=== PATIENT | female | born 1935 | race Caucasian/White ===

== ENCOUNTER 2021-11-15 18:55 | Inpatient (IN) ==
[2021-11-15] MEDS ORDERED: MoRPHine SULFATE 2 MG/ML CARP IV PRN (19:04)
--- NOTE | 2021-11-15 19:09 | Emergency Department Note ---
History of Present Illness General Chief complaint: Fall Stated complaint: fall, hip pain Time Seen by Provider: 11/15/21 19:01 History of Present Illness 86-year-old female presents to the ED with a chief complaint of left hip pain. The patient states that she was getting out of bed and slipped prior to arrival causing her fall. The patient complains of left hip pain. She was transported here by EMS. No additional complaints. The pain is worse with movement. She has history of bilateral hip replacements many years ago in the state of [place]. Denies hitting her head or loss of consciousness. No additional complaints of injury. Allergies Allergy/AdvReac Type Severity Reaction Status Date / Time No Known Allergies AdvReac Unknown Unverified 11/05/04 22:51 Past Med/Surg History Medical History HLD (hyperlipidemia) HTN (hypertension) No pertinent family history Surgical History No pertinent past surgical history Social History Smoking Status: Never smoker Feels Safe at Home: Yes Review of Systems A total of 10 systems reviewed and were otherwise negative Physical Exam CONSTITUTIONAL/VITAL SIGNS: Reviewed / noted above. GENERAL: Non-toxic in appearance. INTEGUMENTARY: Warm, dry, and [place]. HEAD: Normocephalic. EYES: without scleral icterus or trauma. ENT/OROPHARYNX: clear and moist. LYMPHADENOPATHY/NECK: Is supple without lymphadenopathy or meningismus. RESPIRATORY: Clear to auscultation bilaterally. No increased work of breathing. CARDIOVASCULAR: Regular rate and rhythm. EXTREMITIES: Warm and well perfused. The patient has the left hip flexed. It is painful with any movement. Distal pulses are intact. NEUROLOGICAL: Intact without focal deficits. PSYCHIATRIC: normal affect. MUSCULOSKELETAL: Normally developed with good muscle tone. TRIAGE NURSING DOCUMENTATION REVIEWED. Course Administered Medications Lactated Ringer's (Lr) 1,000 mls @ 75 mls/hr IV .[id number] SUSAN Stop: 12/15/21 19:14 Last Admin: 11/15/21 19:45 Dose: 75 mls/hr Documented By: [id number] Morphine Sulfate (Morphine Sulfate 4 Mg/Ml 1 Ml Carp\Vial) 4 mg IV Q1H PRN PRN Reason: Severe Pain (Rating 7,8,9,10) Stop: 11/29/21 19:03 Last Admin: 11/15/21 19:45 Dose: 4 mg Documented By: [id number] Medical Decision Making Differential Diagnosis Fracture, subluxation, dislocation, contusion, ligamentous injury, neurovascul ar, compartment syndrome, rhabdomyolysis, as well as other pathologies. Medical Records Attestation: I reviewed the patient's medical records. Home Medications Current Medication List: was personally reviewed by me Laboratory Data Attestation: I reviewed the patient's lab results. Result diagrams: 11/15/21 19:14 11/15/21 19:14 Lab Results 11/15/21 11/15/21 11/15/21 Range/Units 19:14 19:14 19:14 WBC 10.83 H (4.8-10.8) K/ul RBC 3.94 (3.93-5.22) M/uL Hgb 12.6 (12.0-16.0) g/dl Hct 35.5 (34.1-44.9) % MCV 90.1 (80.0-100.0) fL MCH 32.0 (25.0-34.0) pg MCHC 35.5 (32.0-36.0) g/dL RDW Std Deviation 38.2 (36.4-46.3) fL RDW Coeff of Robert 11.5 (11.5-14.5) % Plt Count 262 (130-400) K/uL MPV 10.3 (9.4-12.3) fL Immature Gran % (Auto) 0.4 % Neut % (Auto) 73.4 % Lymph % (Auto) 18.9 % [place] % (Auto) 5.4 % Eos % (Auto) 1.3 % Baso % (Auto) 0.6 % Neut # (Auto) 7.96 H (1.4-6.5) K/uL Lymph # (Auto) 2.05 (1.2-3.4) K/uL Kenton # (Auto) 0.58 (0.24-0.82) K/uL Eos # (Auto) 0.14 (0-0.50) K/uL Baso # (Auto) 0.06 (0-0.2) K/uL Immature Gran # (Auto) 0.04 H (0.00-0.02) K/uL PT 10.8 (9.0-12.0) Seconds INR 1.0 (0.9-1.1) APTT 22.8 (21.0-31.0) Seconds PTT Ratio 0.8 Sodium 136 (136-145) mmol/L Potassium 4.1 (3.5-5.1) mmol/L Chloride 103 (98-107) mmol/L Carbon Dioxide 24 (21-32) mmol/L Anion Gap 9 (3-11) BUN 14 (6-23) mg/dl Creatinine 0.80 (0.6-1.2) mg/dl Est Cr Clr Drug Dosing Not Reportable Est GFR ( Amer) 76.8 ml/min Est GFR (Non-Af Amer) 66.3 ml/min BUN/Creatinine Ratio 17.5 (10-20) Glucose 110 H (70-99(Fasting)) mg/dl Calcium 9.1 (8.5-10.1) mg/dl Total Bilirubin 0.7 (0.2-1.0) mg/dl AST 20 (13-39) U/L ALT 11 (7-52) U/L Alkaline Phosphatase 48 (34-104) U/L Total Protein 6.8 (6.0-8.3) gm/dl Albumin 3.9 (3.4-5.0) gm/dl Globulin 2.9 (2.5-4.0) gm/dl Albumin/Globulin Ratio 1.3 (0.9-2) Imaging Data Radiologist's Impression: Hip/Pelvis X-Ray 11/15/21 19:05 XR hip LT 2V w pelvis CLINICAL HISTORY: Hip fracture. COMPARISON: None FINDINGS: Sacroiliac joints and symphysis pubis are intact. Alignment of the right hip arthroplasty is anatomic. Visualized portions are intact. Note is made of an acute periprosthetic fracture adjacent to the proximal femoral component of the left hip arthroplasty with displacement of the lesser trochanter. IMPRESSION: Acute periprosthetic fracture of the proximal left femur with displacement of the lesser trochanter. ACT 112: Negative or not required by law. Electronically signed by: Michi Shepherd M.D. 11/15/2021 7:49 PM Chest X-Ray 11/15/21 19:06 XR chest 1V portable CLINICAL HISTORY: Hip fracture. COMPARISON STUDY: Chest radiograph April 15, 2021. FINDINGS: Lung volumes are normal. Lungs are clear. There is no pneumothorax or pleural effusion. Cardiac size is normal. Mediastinal contours are normal. There is no evidence for pulmonary edema. Bilateral breast implants are incidentally noted. IMPRESSION: No acute cardiopulmonary findings. ACT 112: Negative or not required by law. Electronically signed by: Michi Shepherd M.D. 11/15/2021 7:50 PM ECG Data Attestation: I personally reviewed and interpreted this ECG as follows: Additional Comments: Twelve-lead EKG: Per my interpretation shows normal sinus rhythm at a rate of 60. No ST elevation. No PVCs. Normal QTC. MDM Narrative 86-year-old female presents after a slip and fall with left hip pain. This occurred just prior to arrival. Exam reveals pain in the left hip with any movement. X-ray shows a periprosthetic femur fracture. EKG shows normal sinus rhythm. CBC and chemistry panel was normal. I spoke with Dr. Michel from orthopedics. He recommends a CT scan with 3D reconstruction and medicine [facility]. I spoke with the hospitalist who will see the patient. Impression & Plan Closed left femoral fracture, Fall Discharge Plan Visit Data Chief Complaint: Fall Stated Complaint: fall, hip pain ED Provider: Hardik Kearney Discharge Problem: Closed left femoral fracture, Fall Patient Disposition: Being Evaluated by Hospitalist Forms Stand Alone Forms: My [facility] Referrals Referrals: Geovanni Last MD [Outside Practitioners] -
[2021-11-15] MEDS ORDERED: LACTATED RINGER'S 1,000 ML IV SCH (19:15)
[2021-11-15 19:30] LABS: Hematocrit (blood only) 35.5 % (34.1-44.9); Hemoglobin 12.6 g/dl (12.0-16.0); Mean Corpuscular Hgb Conc 35.5 g/dL (32.0-36.0); Mean Corpuscular Volume 90.1 fL (80.0-100.0); Mean Platelet Volume 10.3 fL (9.4-12.3); Platelet Count 262 K/uL (130-400); RDW Coefficient of Variation 11.5 % (11.5-14.5); RDW Standard Deviation 38.2 fL (36.4-46.3); Red Blood Count 3.94 M/uL (3.93-5.22); White Blood Count 10.83 K/ul (4.8-10.8)
[2021-11-15 19:41] LABS: Partial Thromboplastin Ratio 0.8; Partial Thromboplastin Time 22.8 Seconds (21.0-31.0); Prothrombin Time 10.8 Seconds (9.0-12.0)
[2021-11-15 19:45] LABS: Alanine Aminotransferase 11 U/L (7-52); Albumin Globulin Ratio 1.3 (0.9-2); Albumin Level 3.9 gm/dl (3.4-5.0); Alkaline Phosphatase 48 U/L (34-104); Anion Gap 9 (3-11); Aspartate Aminotransferase 20 U/L (13-39); BUN Creatinine Ratio 17.5 (10-20); Bilirubin,Total 0.7 mg/dl (0.2-1.0); Blood Urea Nitrogen 14 mg/dl (6-23); Calcium 9.1 mg/dl (8.5-10.1); Carbon Dioxide 24 mmol/L (21-32); Chloride 103 mmol/L (98-107); Est GFR (African American) 76.8 ml/min; Est GFR (Non-African American) 66.3 ml/min; Globulin 2.9 gm/dl (2.5-4.0); Glucose 110 mg/dl (70-99(Fasting)); Potassium 4.1 mmol/L (3.5-5.1); Sodium 136 mmol/L (136-145); Total Protein 6.8 gm/dl (6.0-8.3)
[2021-11-15] MEDS: MoRPHine SULFATE 4 MG/ML 1 ML CARP\\VIAL IV PRN ×3 (19:45→22:27)
[2021-11-15 19:49] LABS: Basophils # (auto) 0.06 K/uL (0-0.2); Basophils % (auto) 0.6 %; Eosinophils # (auto) 0.14 K/uL (0-0.50); Eosinophils % (auto) 1.3 %; Immature Granulocytes # (auto) 0.04 K/uL (0.00-0.02); Immature Granulocytes % (auto) 0.4 %; Lymphocytes # (auto) 2.05 K/uL (1.2-3.4); Lymphocytes % (auto) 18.9 %; Monocytes # (auto) 0.58 K/uL (0.24-0.82); Monocytes % (auto) 5.4 %; Neutrophils # (auto) 7.96 K/uL (1.4-6.5); Neutrophils % (auto) 73.4 %
--- NOTE | 2021-11-15 19:50 | XRay Report ---
XR hip LT 2V w pelvis CLINICAL HISTORY: Hip fracture. COMPARISON: None FINDINGS: Sacroiliac joints and symphysis pubis are intact. Alignment of the right hip arthroplasty is anatomic. Visualized portions are intact. Note is made of an acute periprosthetic fracture adjacen t to the proximal femoral component of the left hip arthroplasty with displacement of the lesser troc hanter. IMPRESSION: Acute periprosthetic fracture of the proximal left femur with displacement of the lesser trochanter. ACT 112: Negative or not required by law. Electronically signed by: Michi Shepherd M.D. 11/15/2021 7:49 PM
--- NOTE | 2021-11-15 19:52 | XRay Report ---
XR chest 1V portable CLINICAL HISTORY: Hip fracture. COMPARISON STUDY: Chest radiograph April 15, 2021. FINDINGS: Lung volumes are normal. Lungs are clear. There is no pneumothorax or pleural effusion. Car diac size is normal. Mediastinal contours are normal. There is no evidence for pulmonary edema. Bilat eral breast implants are incidentally noted. IMPRESSION: No acute cardiopulmonary findings. ACT 112: Negative or not required by law. Electronically signed by: Michi Shepherd M.D. 11/15/2021 7:50 PM
--- NOTE | 2021-11-15 22:03 | CT Scan Report ---
LEFT FEMUR CT WITHOUT CONTRAST CLINICAL HISTORY: left femur fx, with 3D recons COMPARISON STUDY: Pelvis and left hip radiograph performed earlier today. TECHNIQUE: Axial images of the left femur were obtained without IV contrast. Sagittal and coronal rec onstructions were viewed. Automated exposure control was utilized for the study. A dose lowering toyin hnique was utilized adhering to the principles of ALARA. FINDINGS: Note is made of an acute periprosthetic fracture adjacent to the femoral component of the l eft hip arthroplasty. The lesser trochanter is displaced 1.1 cm. Fracture extends through the lateral cortex of the proximal left femur as well. Irregularity of the greater trochanter is chronic. Adjace nt soft tissues are suboptimally assessed due to streak artifact from the left hip arthroplasty. No d istal left femoral fracture is present. Alignment of the left knee is anatomic. Right hip arthroplast y is partially imaged. No significant abnormalities identified within the visualized pelvis. Symphysi s pubis is intact. IMPRESSION: Acute displaced periprosthetic fracture adjacent to the femoral component of the left hi p arthroplasty, as described above. ACT 112: Negative or not required by law. Electronically signed by: Michi Shepherd M.D. 11/15/2021 10:02 PM
[2021-11-15 23:28] LABS: Appearance Urine Clear (Clear); Bacteria Urine Automated Negative (Negative); Bilirubin Urine Negative (Negative); Blood Urine Negative (Negative); Color Urine Yellow; Glucose Urine UA Negative (Negative); Ketones Urine 1+ (Negative); Leukocyte Esterase Urine 1+ (Negative); Nitrite Urine Negative (Negative); Protein Urine Negative (Negative); RBC Urine Automated 0-4 /hpf (0-4); Specific Gravity Urine 1.018 (1.000-1.030); Urobilinogen Urine Negative (Negative); pH Urine 6.5 (4.5-7.5)
--- NOTE | 2021-11-15 23:52 | History and Physical Report ---
DATE OF ADMISSION: 11/15/2021. CHIEF COMPLAINT: Status post fall and left hip femur fracture. HISTORY OF PRESENT ILLNESS: An 86-year-old female with past medical history significant for hypertension, hyperlipidemia, mild cognitive impairment, hypothyroidism, history of low back pain, presents with a fall. The patient lives at home with her daughter. She says she slipped from the bed onto her right side and she got up and when she tried to walk, she put long steps and again slipped and fell down again. At this time, she had a lot of pain on the left side. She did not hit her head.Was brought to the hospital and found to have a left acute displaced periprosthetic fracture adjacent to the femoral component of the left hip arthroplasty. Currently with slight movement, she is in a lot of pain. Otherwise, she is hemodynamically stable. Denies any headache. No blurred visions, no earache, no runny nose, no sore throat, no cough, no fever. Appetite is okay. No difficulty swallowing. No chest pain, no shortness of breath, no nausea, no abdominal pain. Normal bowel and bladder movements. She says she ambulates at home without support, but when she goes outside, she uses cane and she says she easily can walk a block. ALLERGIES: No known drug allergies. PAST MEDICAL HISTORY: As mentioned above. PAST SURGICAL HISTORY: Seemed to have had bilateral hip arthroplasty. MEDICATIONS: The patient is donepezil 5 mg p.o. at bedtime, irbesartan 150 mg p.o. at bedtime, levothyroxine 50 mcg p.o. daily, pravastatin 40 mg p.o. daily. FAMILY HISTORY: No family history on file. SOCIAL HISTORY: , currently lives with daughter. Former smoker. Currently, no alcohol, no drug use. REVIEW OF SYSTEMS: As per HPI. Rest of the review of systems is negative. PHYSICAL EXAMINATION: GENERAL: The patient is of moderate build, not in acute distress. VITAL SIGNS: Temperature 37.5, pulse 62, respiratory rate 20, blood pressure 146/66, oxygen 99% on room air. HEENT: Pupils equal, round and reactive to light. Oral mucosa moist. NECK: No JVD, no neck masses. CARDIOVASCULAR: S1 and S2 heard. Regular rate and rhythm. No murmur, no gallop. RESPIRATORY: Normal AP diameter. No accessory muscle use. No wheezing, no crackles. ABDOMEN: Soft, bowel sounds present, nontender, no distention. CENTRAL NERVOUS SYSTEM: Alert and oriented. Speech is clear. No facial droop. Obeys simple commands. Moves extremities. EXTREMITIES: Left lower extremity is slightly shortened. No edema or erythema seen. LABORATORY DATA: WBC 10.8, hemoglobin 12.6, hematocrit 33.5, platelets 262. PT 10.8, INR 1, APTT 22.8. Sodium 136, potassium 4.1, chloride 103, bicarbonate 24, BUN 14, creatinine 0.8, serum glucose 110, calcium 9.1, total bilirubin 0.7, AST 20, ALT 11, alkaline phosphatase 48. Chest x-ray: No acute cardiopulmonary findings. Hip and pelvic x-ray: Acute periprosthetic fracture of the proximal left femur with displacement of the lesser trochanter. Femur CT without contrast: Acute displaced periprosthetic fracture adjacent to the femoral component of the left hip arthroplasty. EKG: Normal sinus rhythm at a rate of 60, no significant change was found. ASSESSMENT AND PLAN: This is an 86-year-old female who presents with fall and left hip fracture. 1. Mechanical fall, left acute displaced periprosthetic fracture adjacent to the femoral component of the left hip arthroplasty. We will keep her n.p.o. after midnight, IV fluids, IV antiemetics, IV pain medication p.r.n. Consult orthopedics. The patient should be at acceptable risk to proceed with any procedure. 2. History of hypertension. Continue irbesartan . IV hydralazine p.r.n. 3. Hypothyroidism. Continue Synthroid. 4. Hyperlipidemia. Continue statin. 5. Mild cognitive impairment. Continue donepezil. Monitor for any delirium. 6. Deep venous thrombosis prophylaxis. We will not place her on any anticoagulation because of any plan for procedure and could not place sequential compression devices because of hip fracture. Further anticoagulation as per orthopedics. DISPOSITION: Admit to medical floor. PT, OT prior to discharge. Social service to help with discharge planning. Level 1, full code. Job ID: [id number] [facility]
[2021-11-16] MEDS ORDERED: POLYETHYLENE (MIRALAX) 17 GM PACK PO PRN (00:05)
[2021-11-16] MEDS ORDERED: hydrALAZINE HCL 20 MG/ML VIAL IV PRN (00:05)
[2021-11-16] MEDS ORDERED: ONDANSETRON INJ 2 MG/ML 2 ML VIAL IV PRN (00:05)
[2021-11-16] MEDS ORDERED: D5W AND 1/2NSS 1,000 ML IV SCH (00:05)
[2021-11-16] MEDS ORDERED: MoRPHine SULFATE 4 MG/ML 1 ML CARP\\VIAL IV PRN (00:05)
[2021-11-16] MEDS: LEVOTHYROXINE SODIUM 50 MCG TABLET PO SCH (05:12)
[2021-11-16 05:47] LABS: Basophils # (auto) 0.03 K/uL (0-0.2); Basophils % (auto) 0.3 %; Hematocrit (blood only) 31.9 % (34.1-44.9); Immature Granulocytes # (auto) 0.03 K/uL (0.00-0.02); Immature Granulocytes % (auto) 0.3 %; Lymphocytes # (auto) 1.37 K/uL (1.2-3.4); Lymphocytes % (auto) 14.3 %; Mean Corpuscular Hgb Conc 34.5 g/dL (32.0-36.0); Mean Corpuscular Volume 92.7 fL (80.0-100.0); Mean Platelet Volume 10.1 fL (9.4-12.3); Monocytes # (auto) 0.66 K/uL (0.24-0.82); Monocytes % (auto) 6.9 %; Neutrophils # (auto) 7.47 K/uL (1.4-6.5); Neutrophils % (auto) 78.2 %; Platelet Count 218 K/uL (130-400); RDW Coefficient of Variation 11.6 % (11.5-14.5); RDW Standard Deviation 39.3 fL (36.4-46.3); Red Blood Count 3.44 M/uL (3.93-5.22); White Blood Count 9.56 K/ul (4.8-10.8)
[2021-11-16 06:15] LABS: Calcium 8.5 mg/dl (8.5-10.1); Creatinine Clr Calc Pharmacy 53.6 ml/min; Est GFR (African American) 90.3 ml/min; Est GFR (Non-African American) 77.9 ml/min; Magnesium 1.9 mg/dl (1.7-2.4); Potassium 3.8 mmol/L (3.5-5.1)
--- NOTE | 2021-11-16 07:31 | Orthopedic Consultation ---
Date of Service November 16, 2021 Assessment & Plan (1) Closed left femoral fracture: Patient has a left periprosthetic femur fracture involving the lesser trochanter. The implant itself appears stable. We did get the CT scan to look at this and I do not think this will need surgery. Left immobilizer and see how she does. She is going to need a rehab stay likely. That she can weight-bear as tolerated based on her comfort level. She will need a walker for a while. There is a chance if the implant starts to shift or move position and may need further management but I think this unlikely. Any orthopedic questions can reactivate [id number] History of Present Illness Reason for Consultation: . Left periprosthetic femur fracture. Requesting Physician: . Attending Physician: Alejandro Martines MD . Patient is an 86-year-old female who presents to status post a fall with the left hip pain. She has a history of a bilateral hip replacement done in [place] she states 20 years ago. Hips have done reasonably well. Sustained a fall she says out of bed. Not exactly sure when this happened. She was brought to emergency room and x-rays fracture of the hip. She has been admitted. Were consulted for treatment. Denies any pre-existing hip pain. Pretty poor historian this morning as she is having trouble recalling the exact dates and times of the events. Allergies Allergy/AdvReac Type Severity Reaction Status Date / Time No Known Allergies AdvReac Unknown Unverified 11/05/04 22:51 Home Medications Medication Instructions Recorded Confirmed Type donepezil 5 mg tablet 5 mg PO HS 11/15/21 11/15/21 History irbesartan 150 mg tablet 150 mg PO HS 11/15/21 11/15/21 History levothyroxine 50 mcg tablet 50 mcg PO DAILY 11/15/21 11/15/21 History pravastatin 40 mg tablet 40 mg PO DAILY 11/15/21 11/15/21 History Past Med/Surg History Medical History HLD (hyperlipidemia) HTN (hypertension) No pertinent family history Surgical History No pertinent past surgical history Social History Smoking Status: Never smoker Hx Alcohol Use: No Hx Substance Use: No Preferred Language: Welsh [employer] Required: No Beliefs That Will Affect Care: None Current Living Situation: Family Current Living Situation Comment: Daughter Other Information That Helps Us Care for You: No Feels Safe at Home: Yes Safety Concerns: Feels Safe At This Time Assistive Devices: Glasses Review of Systems All systems reviewed & are unremarkable except as noted in HPI & below. Physical Exam Physical examination was a pleasant frail elderly female. Lying in bed looks comfortable lying in bed. She denies any pain. Her left leg is appropriately positioned. There is no deformity. No swelling. No bruising. She has cannot do a straight leg raise. With any type of hip motion she clearly has significant proximal hip pain. She is neurologically intact.. Results & Data Results & Data Laboratory Results . X-rays of the pelvis and left hip were reviewed. She is a left uncemented hip replacement with a fairly vertical cup. There is an avulsion fracture of the lesser trochanter. The implant itself looks stable and well fixed within the femur. Diagnostic Findings . PG Care Time/CCT Total # of Minutes Spent Total Time Spent with Patient: Total time spent is greater than 50% in coordination of care (as documented) at patient's floor/unit and/or counseling patient: Coding Level of Care Code 48543 Inpt Consult Level 5 Diagnoses Closed left femoral fracture S72.92XA
[2021-11-16] MEDS: PRAVASTATIN SOD 40 MG TAB PO SCH (09:18)
--- NOTE | 2021-11-16 15:14 | Hospitalist Progress Note ---
Date of Service November 16, 2021 Assessment & Plan (1) Closed left femoral fracture: (2) Fall: (3) HLD (hyperlipidemia): (4) HTN (hypertension): Plan ASSESSMENT AND PLAN: This is an 86-year-old female who presents with fall and left hip fracture. 1. Mechanical fall, left acute displaced periprosthetic fracture adjacent to the femoral component of the left hip arthroplasty: - No need for surgery as per orthopedics. - Left immobilizer placed. -PT ordered. -Olivares discontinued -Lovenox for DVT prophylaxis -Pain control with Tylenol, oxycodone and morphine. 2. History of hypertension. Continue irbesartan . 3. Hypothyroidism. Continue Synthroid. 4. Hyperlipidemia. Continue statin. 5. Mild cognitive impairment. Continue donepezil. Monitor for any delirium. 6. Deep venous thrombosis prophylaxis. Lovenox Discussed regarding plan of care with the daughter at bedside. Admission and Anticipated Discharge Date Admission Date: November 15, 2021 Subjective Patient seen and examined at bedside she is comfortably lying in the bed; not in any distress. Pain is well controlled on current regimen. She still has a Olivares in with clear urine. Review of Systems Review of Systems: All systems reviewed & are unremarkable except as noted in Subjective Physical Exam Physical Exam: GENERAL: The patient is of moderate build, not in acute distress. HEENT: Pupils equal, round and reactive to light. Oral mucosa moist. NECK: No JVD, no neck masses. CARDIOVASCULAR: S1 and S2 heard. Regular rate and rhythm. No murmur, no gallop. RESPIRATORY: Normal AP diameter. No accessory muscle use. No wheezing, no crackles. ABDOMEN: Soft, bowel sounds present, nontender, no distention. CENTRAL NERVOUS SYSTEM: Alert and oriented. Speech is clear. No facial droop. Obeys simple commands. Moves extremities. EXTREMITIES:Left thigh swollen; ROM limited by pain. Results & Data Results & Data ([facility]) Vital Signs (Past 12 Hours) Vital Signs Temp Pulse Resp BP Pulse Ox O2 Del Method 11/16/21 14:09 36.9 C 76 18 150/67 H 96 Room Air 11/16/21 07:59 36.8 C 65 16 124/68 96 Room Air Laboratory Results Laboratory Results WBC 9.56 K/ul (4.8-10.8) 11/16/21 05:20 RBC 3.44 M/uL (3.93-5.22) L 11/16/21 05:20 Hgb 11.0 g/dl (12.0-16.0) L 11/16/21 05:20 Hct 31.9 % (34.1-44.9) L 11/16/21 05:20 MCV 92.7 fL (80.0-100.0) 11/16/21 05:20 MCH 32.0 pg (25.0-34.0) 11/16/21 05:20 MCHC 34.5 g/dL (32.0-36.0) 11/16/21 05:20 RDW Std Deviation 39.3 fL (36.4-46.3) 11/16/21 05:20 RDW Coeff of Robert 11.6 % (11.5-14.5) 11/16/21 05:20 Plt Count 218 K/uL (130-400) 11/16/21 05:20 MPV 10.1 fL (9.4-12.3) 11/16/21 05:20 Immature Gran % (Auto) 0.3 % 11/16/21 05:20 Neut % (Auto) 78.2 % 11/16/21 05:20 Lymph % (Auto) 14.3 % 11/16/21 05:20 [place] % (Auto) 6.9 % 11/16/21 05:20 Eos % (Auto) 0.0 % 11/16/21 05:20 Baso % (Auto) 0.3 % 11/16/21 05:20 Neut # (Auto) 7.47 K/uL (1.4-6.5) H 11/16/21 05:20 Lymph # (Auto) 1.37 K/uL (1.2-3.4) 11/16/21 05:20 [place] # (Auto) 0.66 K/uL (0.24-0.82) 11/16/21 05:20 Eos # (Auto) 0.00 K/uL (0-0.50) 11/16/21 05:20 Baso # (Auto) 0.03 K/uL (0-0.2) 11/16/21 05:20 Immature Gran # (Auto) 0.03 K/uL (0.00-0.02) H 11/16/21 05:20 PT 10.8 Seconds (9.0-12.0) 11/15/21 19:14 INR 1.0 (0.9-1.1) 11/15/21 19:14 APTT 22.8 Seconds (21.0-31.0) 11/15/21 19:14 PTT Ratio 0.8 11/15/21 19:14 Sodium 136 mmol/L (136-145) 11/16/21 05:20 Potassium 3.8 mmol/L (3.5-5.1) 11/16/21 05:20 Chloride 105 mmol/L (98-107) 11/16/21 05:20 Carbon Dioxide 26 mmol/L (21-32) 11/16/21 05:20 Anion Gap 5 (3-11) 11/16/21 05:20 BUN 14 mg/dl (6-23) 11/16/21 05:20 Creatinine 0.70 mg/dl (0.6-1.2) 11/16/21 05:20 Est Cr Clr Drug Dosing 53.6 ml/min 11/16/21 05:20 Est GFR ( Amer) 90.3 ml/min 11/16/21 05:20 Est GFR (Non-Af Amer) 77.9 ml/min 11/16/21 05:20 BUN/Creatinine Ratio 20.0 (10-20) 11/16/21 05:20 Glucose 190 mg/dl (70-99(Fasting)) H 11/16/21 05:20 Calcium 8.5 mg/dl (8.5-10.1) 11/16/21 05:20 Magnesium 1.9 mg/dl (1.7-2.4) 11/16/21 05:20 Total Bilirubin 0.7 mg/dl (0.2-1.0) 11/15/21 19:14 AST 20 U/L (13-39) 11/15/21 19:14 ALT 11 U/L (7-52) 11/15/21 19:14 Alkaline Phosphatase 48 U/L (34-104) 11/15/21 19:14 Total Protein 6.8 gm/dl (6.0-8.3) 11/15/21 19:14 Albumin 3.9 gm/dl (3.4-5.0) 11/15/21 19:14 Globulin 2.9 gm/dl (2.5-4.0) 11/15/21 19:14 Albumin/Globulin Ratio 1.3 (0.9-2) 11/15/21 19:14 Urine Color Yellow 11/15/21 23:05 Urine Appearance Clear (Clear) 11/15/21 23:05 Urine pH 6.5 (4.5-7.5) 11/15/21 23:05 Ur Specific [place] 1.018 (1.000-1.030) 11/15/21 23:05 Urine Protein Negative (Negative) 11/15/21 23:05 Urine Glucose (UA) Negative (Negative) 11/15/21 23:05 Urine Ketones 1+ (Negative) H 11/15/21 23:05 Urine Blood Negative (Negative) 11/15/21 23:05 Urine Nitrite Negative (Negative) 11/15/21 23:05 Urine Bilirubin Negative (Negative) 11/15/21 23:05 Urine Urobilinogen Negative (Negative) 11/15/21 23:05 Ur Leukocyte Esterase 1+ (Negative) H 11/15/21 23:05 Urine WBC (Auto) 1-5 /hpf (0-5) 11/15/21 23:05 Urine RBC (Auto) 0-4 /hpf (0-4) 11/15/21 23:05 U Hyaline Cast (Auto) 1-5 /lpf (0-5) 11/15/21 23:05 U Epithel Cells (Auto) 10-20 /lpf (0-5) H 11/15/21 23:05 Urine Bacteria (Auto) Negative (Negative) 11/15/21 23:05 SARS-CoV-2, RNA, NAAT NEGATIVE (NEGATIVE) 11/15/21 22:00 Blood Type A Positive 11/15/21 19:39 Antibody Screen NEGATIVE 11/15/21 19:39 Impressions Hip/Pelvis X-Ray 11/15/21 19:05 XR hip LT 2V w pelvis CLINICAL HISTORY: Hip fracture. COMPARISON: None FINDINGS: Sacroiliac joints and symphysis pubis are intact. Alignment of the right hip arthroplasty is anatomic. Visualized portions are intact. Note is made of an acute periprosthetic fracture adjacent to the proximal femoral component of the left hip arthroplasty with displacement of the lesser trochanter. IMPRESSION: Acute periprosthetic fracture of the proximal left femur with displacement of the lesser trochanter. ACT 112: Negative or not required by law. Electronically signed by: Michi Shepherd M.D. 11/15/2021 7:49 PM Chest X-Ray 11/15/21 19:06 XR chest 1V portable CLINICAL HISTORY: Hip fracture. COMPARISON STUDY: Chest radiograph April 15, 2021. FINDINGS: Lung volumes are normal. Lungs are clear. There is no pneumothorax or pleural effusion. Cardiac size is normal. Mediastinal contours are normal. There is no evidence for pulmonary edema. Bilateral breast implants are incidentally noted. IMPRESSION: No acute cardiopulmonary findings. ACT 112: Negative or not required by law. Electronically signed by: Michi Shepherd M.D. 11/15/2021 7:[address] 11/15/21 19:[address] WITHOUT CONTRAST CLINICAL HISTORY: left femur fx, with 3D recons COMPARISON STUDY: Pelvis and left hip radiograph performed earlier today. TECHNIQUE: Axial images of the left femur were obtained without IV contrast. Sagittal and coronal reconstructions were viewed. Automated exposure control was utilized for the study. A dose lowering technique was utilized adhering to the principles of ALARA. FINDINGS: Note is made of an acute periprosthetic fracture adjacent to the femoral component of the left hip arthroplasty. The lesser trochanter is displaced 1.1 cm. Fracture extends through the lateral cortex of the proximal left femur as well. Irregularity of the greater trochanter is chronic. Adjacent soft tissues are suboptimally assessed due to streak artifact from the left hip arthroplasty. No distal left femoral fracture is present. Alignment of the left knee is anatomic. Right hip arthroplasty is partially imaged. No significant abnormalities identified within the visualized pelvis. Symphysis pubis is intact. IMPRESSION: Acute displaced periprosthetic fracture adjacent to the femoral component of the left hip arthroplasty, as described above. ACT 112: Negative or not required by law. Electronically signed by: Michi Shepherd M.D. 11/15/2021 10:02 PM
[2021-11-16] MEDS: oxyCODONE HCL IR 5 MG TAB (IMMEDIATE RELEASE) PO PRN (15:47)
[2021-11-16] MEDS: ENOXAPARIN INJ 40 MG/0.4 ML SYR SQ SCH (16:30)
--- NOTE | 2021-11-16 17:19 | Electrocardiogram Report ---
Test Reason : Blood Pressure : / mmHG Vent. Rate : 060 BPM Atrial Rate : 060 BPM P-R Int : 138 ms QRS Dur : 078 ms QT Int : 444 ms P-R-T Axes : 035 046 058 degrees QTc Int : 444 ms Normal sinus rhythm Septal infarct (cited on or before 15-APR-2021) Abnormal ECG When compared with ECG of 15-APR-2021 11:11, No significant change was found Confirmed by Joao Dailey ([id number]) on 11/16/2021 5:19:06 PM Referred By: REFERRED SELF Confirmed By:Joao Dailey
[2021-11-16] MEDS: IRBESARTAN 150 MG TAB PO SCH (20:40)
[2021-11-16] MEDS: DONEPEZIL HCL 5 MG TAB PO SCH (20:40)
[2021-11-17] MEDS: oxyCODONE HCL IR 5 MG TAB (IMMEDIATE RELEASE) PO PRN ×3 (00:28→17:13)
[2021-11-17] MEDS: LEVOTHYROXINE SODIUM 50 MCG TABLET PO SCH (05:16)
[2021-11-17] MEDS: PRAVASTATIN SOD 40 MG TAB PO SCH (08:59)
[2021-11-17] MEDS: ENOXAPARIN INJ 40 MG/0.4 ML SYR SQ SCH (08:59)
--- NOTE | 2021-11-17 12:32 | Progress Notes ---
DATE OF NOTE: 11/17/2021. SUBJECTIVE: An 86-year-old white female admitted with a left periprosthetic femur fracture. She is doing okay. Pain is better today. She has actually had been mobilizing some and seems to be getting around with significant assistance. A moderate amount of pain. OBJECTIVE: VITAL SIGNS: Temperature 37.4. Vital signs are stable. GENERAL: Shows a pleasant, elderly female. She was working with a nurse and walking with a walker w hen I visited her today. EXTREMITIES: She is requiring quite a bit of help. Leg lengths were equal. No major swelling. She is neurologically intact. ASSESSMENT: An 86-year-old white female with a left periprosthetic femur fracture with avulsion of t he lesser trochanter. Components looks to be well fixed. I do not feel this needs operative interve ntion. The first 2 weeks of ambulating are going to be difficult. PLAN: We are going to continue PT/OT. She can weight bear as tolerated. There is no brace needed f or this. I will need to check her back in 2 weeks. She is okay for discharge any time medically abl e. She will likely need a rehab/senior living facility stay for some time. Any orthopedic questio ns can be directed to me at [phone]. Job ID: [id number]
--- NOTE | 2021-11-17 13:35 | Hospitalist Progress Note ---
Date of Service November 17, 2021 Assessment & Plan (1) Closed left femoral fracture: (2) Fall: (3) HLD (hyperlipidemia): (4) HTN (hypertension): Plan ASSESSMENT AND PLAN: This is an 86-year-old female who presents with fall and left hip fracture. 1. Mechanical fall, left acute displaced periprosthetic fracture adjacent to the femoral component of the left hip arthroplasty: - No need for surgery as per orthopedics. Plan: - Pain control on current regimen. Voltaren gel ordered on request of the patient. -Continue PT OT -Olivares discontinued -Lovenox for DVT prophylaxis 2. History of hypertension. Continue irbesartan . 3. Hypothyroidism. Continue Synthroid. 4. Hyperlipidemia. Continue statin. 5. Mild cognitive impairment. Continue donepezil. Monitor for any delirium. 6. Deep venous thrombosis prophylaxis. Lovenox DispoPT OT evaluation awaited; discharge to rehab or home with daughter based on recommendation. Admission and Anticipated Discharge Date Admission Date: November 15, 2021 Subjective Patient seen and examined at bedside. She is comfortable; not in any distress. Pain is well controlled on current regimen. She is a still reluctant to get out of the bed and do physical therapy. Importance of physical therapy reiterated. She requested for analgesic cream to be applied on her left hip. Review of Systems Review of Systems: All systems reviewed & are unremarkable except as noted in Subjective Physical Exam Physical Exam: GENERAL: The patient is of moderate build, not in acute distress. HEENT: Pupils equal, round and reactive to light. Oral mucosa moist. NECK: No JVD, no neck masses. CARDIOVASCULAR: S1 and S2 heard. Regular rate and rhythm. No murmur, no gallop. RESPIRATORY: Normal AP diameter. No accessory muscle use. No wheezing, no crackles. ABDOMEN: Soft, bowel sounds present, nontender, no distention. CENTRAL NERVOUS SYSTEM: Alert and oriented. Speech is clear. No facial droop. Obeys simple commands. Moves extremities. EXTREMITIES:Left thigh swollen; ROM limited by pain. Results & Data Results & Data ([facility]) Vital Signs (Past 12 Hours) Vital Signs Temp Pulse Resp BP Pulse Ox O2 Del Method 11/17/21 07:39 37.4 C 78 18 113/61 93 Room Air Laboratory Results Laboratory Results WBC 9.56 K/ul (4.8-10.8) 11/16/21 05:20 RBC 3.44 M/uL (3.93-5.22) L 11/16/21 05:20 Hgb 11.0 g/dl (12.0-16.0) L 11/16/21 05:20 Hct 31.9 % (34.1-44.9) L 11/16/21 05:20 MCV 92.7 fL (80.0-100.0) 11/16/21 05:20 MCH 32.0 pg (25.0-34.0) 11/16/21 05:20 MCHC 34.5 g/dL (32.0-36.0) 11/16/21 05:20 RDW Std Deviation 39.3 fL (36.4-46.3) 11/16/21 05:20 RDW Coeff of Robert 11.6 % (11.5-14.5) 11/16/21 05:20 Plt Count 218 K/uL (130-400) 11/16/21 05:20 MPV 10.1 fL (9.4-12.3) 11/16/21 05:20 Immature Gran % (Auto) 0.3 % 11/16/21 05:20 Neut % (Auto) 78.2 % 11/16/21 05:20 Lymph % (Auto) 14.3 % 11/16/21 05:20 [place] % (Auto) 6.9 % 11/16/21 05:20 Eos % (Auto) 0.0 % 11/16/21 05:20 Baso % (Auto) 0.3 % 11/16/21 05:20 Neut # (Auto) 7.47 K/uL (1.4-6.5) H 11/16/21 05:20 Lymph # (Auto) 1.37 K/uL (1.2-3.4) 11/16/21 05:20 [place] # (Auto) 0.66 K/uL (0.24-0.82) 11/16/21 05:20 Eos # (Auto) 0.00 K/uL (0-0.50) 11/16/21 05:20 Baso # (Auto) 0.03 K/uL (0-0.2) 11/16/21 05:20 Immature Gran # (Auto) 0.03 K/uL (0.00-0.02) H 11/16/21 05:20 PT 10.8 Seconds (9.0-12.0) 11/15/21 19:14 INR 1.0 (0.9-1.1) 11/15/21 19:14 APTT 22.8 Seconds (21.0-31.0) 11/15/21 19:14 PTT Ratio 0.8 11/15/21 19:14 Sodium 136 mmol/L (136-145) 11/16/21 05:20 Potassium 3.8 mmol/L (3.5-5.1) 11/16/21 05:20 Chloride 105 mmol/L (98-107) 11/16/21 05:20 Carbon Dioxide 26 mmol/L (21-32) 11/16/21 05:20 Anion Gap 5 (3-11) 11/16/21 05:20 BUN 14 mg/dl (6-23) 11/16/21 05:20 Creatinine 0.70 mg/dl (0.6-1.2) 11/16/21 05:20 Est Cr Clr Drug Dosing 53.6 ml/min 11/16/21 05:20 Est GFR ( Amer) 90.3 ml/min 11/16/21 05:20 Est GFR (Non-Af Amer) 77.9 ml/min 11/16/21 05:20 BUN/Creatinine Ratio 20.0 (10-20) 11/16/21 05:20 Glucose 190 mg/dl (70-99(Fasting)) H 11/16/21 05:20 Calcium 8.5 mg/dl (8.5-10.1) 11/16/21 05:20 Magnesium 1.9 mg/dl (1.7-2.4) 11/16/21 05:20 Total Bilirubin 0.7 mg/dl (0.2-1.0) 11/15/21 19:14 AST 20 U/L (13-39) 11/15/21 19:14 ALT 11 U/L (7-52) 11/15/21 19:14 Alkaline Phosphatase 48 U/L (34-104) 11/15/21 19:14 Total Protein 6.8 gm/dl (6.0-8.3) 11/15/21 19:14 Albumin 3.9 gm/dl (3.4-5.0) 11/15/21 19:14 Globulin 2.9 gm/dl (2.5-4.0) 11/15/21 19:14 Albumin/Globulin Ratio 1.3 (0.9-2) 11/15/21 19:14 Urine Color Yellow 11/15/21 23:05 Urine Appearance Clear (Clear) 11/15/21 23:05 Urine pH 6.5 (4.5-7.5) 11/15/21 23:05 Ur Specific [place] 1.018 (1.000-1.030) 11/15/21 23:05 Urine Protein Negative (Negative) 11/15/21 23:05 Urine Glucose (UA) Negative (Negative) 11/15/21 23:05 Urine Ketones 1+ (Negative) H 11/15/21 23:05 Urine Blood Negative (Negative) 11/15/21 23:05 Urine Nitrite Negative (Negative) 11/15/21 23:05 Urine Bilirubin Negative (Negative) 11/15/21 23:05 Urine Urobilinogen Negative (Negative) 11/15/21 23:05 Ur Leukocyte Esterase 1+ (Negative) H 11/15/21 23:05 Urine WBC (Auto) 1-5 /hpf (0-5) 11/15/21 23:05 Urine RBC (Auto) 0-4 /hpf (0-4) 11/15/21 23:05 U Hyaline Cast (Auto) 1-5 /lpf (0-5) 11/15/21 23:05 U Epithel Cells (Auto) 10-20 /lpf (0-5) H 11/15/21 23:05 Urine Bacteria (Auto) Negative (Negative) 11/15/21 23:05 SARS-CoV-2, RNA, NAAT NEGATIVE (NEGATIVE) 11/15/21 22:00 Blood Type A Positive 11/15/21 19:39 Antibody Screen NEGATIVE 11/15/21 19:39 Impressions Hip/Pelvis X-Ray 11/15/21 19:05 XR hip LT 2V w pelvis CLINICAL HISTORY: Hip fracture. COMPARISON: None FINDINGS: Sacroiliac joints and symphysis pubis are intact. Alignment of the right hip arthroplasty is anatomic. Visualized portions are intact. Note is made of an acute periprosthetic fracture adjacent to the proximal femoral component of the left hip arthroplasty with displacement of the lesser trochanter. IMPRESSION: Acute periprosthetic fracture of the proximal left femur with displacement of the lesser trochanter. ACT 112: Negative or not required by law. Electronically signed by: Michi Shepherd M.D. 11/15/2021 7:49 PM Chest X-Ray 11/15/21 19:06 XR chest 1V portable CLINICAL HISTORY: Hip fracture. COMPARISON STUDY: Chest radiograph April 15, 2021. FINDINGS: Lung volumes are normal. Lungs are clear. There is no pneumothorax or pleural effusion. Cardiac size is normal. Mediastinal contours are normal. There is no evidence for pulmonary edema. Bilateral breast implants are incidentally noted. IMPRESSION: No acute cardiopulmonary findings. ACT 112: Negative or not required by law. Electronically signed by: Michi Shepherd M.D. 11/15/2021 7:[address] 11/15/21 19:[address] WITHOUT CONTRAST CLINICAL HISTORY: left femur fx, with 3D recons COMPARISON STUDY: Pelvis and left hip radiograph performed earlier today. TECHNIQUE: Axial images of the left femur were obtained without IV contrast. Sagittal and coronal reconstructions were viewed. Automated exposure control was utilized for the study. A dose lowering technique was utilized adhering to the principles of ALARA. FINDINGS: Note is made of an acute periprosthetic fracture adjacent to the femoral component of the left hip arthroplasty. The lesser trochanter is displaced 1.1 cm. Fracture extends through the lateral cortex of the proximal left femur as well. Irregularity of the greater trochanter is chronic. Adjacent soft tissues are suboptimally assessed due to streak artifact from the left hip arthroplasty. No distal left femoral fracture is present. Alignment of the left knee is anatomic. Right hip arthroplasty is partially imaged. No significant abnormalities identified within the visualized pelvis. Symphysis pubis is intact. IMPRESSION: Acute displaced periprosthetic fracture adjacent to the femoral component of the left hip arthroplasty, as described above. ACT 112: Negative or not required by law. Electronically signed by: Michi Shepherd M.D. 11/15/2021 10:02 PM
[2021-11-17] MEDS: DICLOFENAC SOD 1% GEL 100 GM TUBE EXT PRN (17:13)
[2021-11-17] MEDS: IRBESARTAN 150 MG TAB PO SCH (20:52)
[2021-11-17] MEDS: DONEPEZIL HCL 5 MG TAB PO SCH (20:52)
[2021-11-18] MEDS: oxyCODONE HCL IR 5 MG TAB (IMMEDIATE RELEASE) PO PRN ×2 (00:27→20:39)
[2021-11-18] MEDS: LEVOTHYROXINE SODIUM 50 MCG TABLET PO SCH ×2 (05:37→05:47)
[2021-11-18 06:31] LABS: Basophils # (auto) 0.05 K/uL (0-0.2); Basophils % (auto) 0.5 %; Eosinophils # (auto) 0.08 K/uL (0-0.50); Eosinophils % (auto) 0.9 %; Hematocrit (blood only) 27.3 % (34.1-44.9); Hemoglobin 9.5 g/dl (12.0-16.0); Immature Granulocytes # (auto) 0.04 K/uL (0.00-0.02); Immature Granulocytes % (auto) 0.4 %; Lymphocytes # (auto) 1.99 K/uL (1.2-3.4); Lymphocytes % (auto) 21.1 %; Mean Corpuscular Hemoglobin 32.2 pg (25.0-34.0); Mean Corpuscular Hgb Conc 34.8 g/dL (32.0-36.0); Mean Corpuscular Volume 92.5 fL (80.0-100.0); Mean Platelet Volume 10.2 fL (9.4-12.3); Monocytes # (auto) 0.84 K/uL (0.24-0.82); Monocytes % (auto) 8.9 %; Neutrophils # (auto) 6.41 K/uL (1.4-6.5); Neutrophils % (auto) 68.2 %; Platelet Count 180 K/uL (130-400); RDW Coefficient of Variation 11.6 % (11.5-14.5); Red Blood Count 2.95 M/uL (3.93-5.22); White Blood Count 9.41 K/ul (4.8-10.8)
[2021-11-18 07:00] LABS: BUN Creatinine Ratio 22.7 (10-20); Calcium 8.1 mg/dl (8.5-10.1); Est GFR (African American) 83.1 ml/min; Est GFR (Non-African American) 71.7 ml/min; Potassium 3.7 mmol/L (3.5-5.1)
[2021-11-18] MEDS: ACETAMINOPHEN 325 MG TAB PO PRN (07:37)
[2021-11-18] MEDS: PRAVASTATIN SOD 40 MG TAB PO SCH (07:38)
[2021-11-18] MEDS: ENOXAPARIN INJ 40 MG/0.4 ML SYR SQ SCH (07:38)
[2021-11-18] MEDS: DICLOFENAC SOD 1% GEL 100 GM TUBE EXT PRN ×2 (08:51→20:41)
[2021-11-18 10:35] LABS: Appearance Urine Turbid (Clear); Bacteria Urine Automated 4+ (Negative); Blood Urine 3+ (Negative); Color Urine Orange; Glucose Urine UA Negative (Negative); Ketones Urine Negative (Negative); Leukocyte Esterase Urine 3+ (Negative); Nitrite Urine Positive (Negative); Protein Urine 3+ (Negative); RBC Urine Automated >30 /hpf (0-4); Specific Gravity Urine 1.023 (1.000-1.030); Urobilinogen Urine Negative (Negative); WBC Urine Automated >30 /hpf (0-5); pH Urine 6.5 (4.5-7.5)
[2021-11-18 10:40] LABS: Bilirubin Urine 1+ (Negative)
--- NOTE | 2021-11-18 11:28 | Progress Notes ---
SUBJECTIVE: An 86-year-old white female admitted with a periprosthetic femur fracture around a total hip replacement. She is doing better. She has been getting better daily. She is hoping to go home . OBJECTIVE: VITAL SIGNS: Temperature is 36.6. Vital signs are stable. GENERAL: Physical examination shows a pleasant, elderly, frail female. She is lying in bed, looks r easonably comfortable. EXTREMITIES: Examination of the left leg reveals no obvious deformity. No swelling. She still has difficulty doing a straight leg raise. [id number] pain with hip motion. She is neurologically intact. LABORATORY DATA: Hemoglobin 9.5, hematocrit 27.3. Electrolytes are stable. ASSESSMENT: An 86-year-old female with a left periprosthetic femur fracture. She is doing okay and seems to be getting better daily. I do not think this requires surgery. PLAN: Continue medical management. She can weight bear as tolerated. She is orthopedically okay fo r discharge any time. I need to see her back 2 weeks out from injury time. Any orthopedic questions can be directed to me at [phone]. I am going to sign off for now with a planned return visit i n 2-3 weeks. Job ID: [id number]
[2021-11-18] MEDS ORDERED: cefTRIAXone SODIUM 1,000 MG in DEXTROSE 5% 50 ML IV SCH (12:15)
--- NOTE | 2021-11-18 12:49 | Hospitalist Progress Note ---
Date of Service November 18, 2021 Assessment & Plan (1) Closed left femoral fracture: (2) Fall: (3) HLD (hyperlipidemia): (4) HTN (hypertension): Plan ASSESSMENT AND PLAN: This is an 86-year-old female who presents with fall and left hip fracture. 1. Mechanical fall, left acute displaced periprosthetic fracture adjacent to the femoral component of the left hip arthroplasty: - No need for surgery as per orthopedics. Plan: - Pain control on current regimen. Voltaren gel ordered on request of the patient. -Continue PT OT -Lovenox for DVT prophylaxis 2) Urinary Tract Infection Noted to have foul-smelling urine with hematuria on 11/18. Urinalysis shows positive nitrate, high WBC and RBC count along with bacteria. Plan; started on ceftriaxone. Await urine culture and tailor antibiotic as per sensitivity results. 3. History of hypertension. Continue irbesartan . 4. Hypothyroidism. Continue Synthroid. 5. Hyperlipidemia. Continue statin. 6. Mild cognitive impairment. Continue donepezil. Monitor for any delirium. 7. Deep venous thrombosis prophylaxis. Lovenox DispoPT OT recommendation appreciated; case management associate on board. Acute rehab versus subacute rehab. Discussed plan of care with her daughter Black over the phone. Admission and Anticipated Discharge Date Admission Date: November 15, 2021 Subjective Patient seen and examined at bedside. Reported by the nurse that patient had foul-smelling urine along with hematuria. Urinalysis done; concerning for UTI. Patient is started on ceftriaxone. Review of Systems Review of Systems: All systems reviewed & are unremarkable except as noted in Subjective Physical Exam Physical Exam: GENERAL: The patient is of moderate build, not in acute distress. HEENT: Pupils equal, round and reactive to light. Oral mucosa moist. NECK: No JVD, no neck masses. CARDIOVASCULAR: S1 and S2 heard. Regular rate and rhythm. No murmur, no gallop. RESPIRATORY: Normal AP diameter. No accessory muscle use. No wheezing, no crackles. ABDOMEN: Soft, bowel sounds present, nontender, no distention. CENTRAL NERVOUS SYSTEM: Alert and oriented. Speech is clear. No facial droop. Obeys simple commands. Moves extremities. EXTREMITIES:Left thigh swollen; ROM limited by pain. Results & Data Results & Data ([facility]) Vital Signs (Past 12 Hours) Vital Signs Temp Pulse Resp BP Pulse Ox O2 Del Method 11/18/21 08:35 74 136/77 97 Room Air 11/18/21 07:27 36.6 C 75 18 149/68 H 94 Room Air Laboratory Results Laboratory Results WBC 9.41 K/ul (4.8-10.8) 11/18/21 06:03 RBC 2.95 M/uL (3.93-5.22) L 11/18/21 06:03 Hgb 9.5 g/dl (12.0-16.0) L 11/18/21 06:03 Hct 27.3 % (34.1-44.9) L 11/18/21 06:03 MCV 92.5 fL (80.0-100.0) 11/18/21 06:03 MCH 32.2 pg (25.0-34.0) 11/18/21 06:03 MCHC 34.8 g/dL (32.0-36.0) 11/18/21 06:03 RDW Std Deviation 39.0 fL (36.4-46.3) 11/18/21 06:03 RDW Coeff of Robert 11.6 % (11.5-14.5) 11/18/21 06:03 Plt Count 180 K/uL (130-400) 11/18/21 06:03 MPV 10.2 fL (9.4-12.3) 11/18/21 06:03 Immature Gran % (Auto) 0.4 % 11/18/21 06:03 Neut % (Auto) 68.2 % 11/18/21 06:03 Lymph % (Auto) 21.1 % 11/18/21 06:03 [place] % (Auto) 8.9 % 11/18/21 06:03 Eos % (Auto) 0.9 % 11/18/21 06:03 Baso % (Auto) 0.5 % 11/18/21 06:03 Neut # (Auto) 6.41 K/uL (1.4-6.5) 11/18/21 06:03 Lymph # (Auto) 1.99 K/uL (1.2-3.4) 11/18/21 06:03 [place] # (Auto) 0.84 K/uL (0.24-0.82) H 11/18/21 06:03 Eos # (Auto) 0.08 K/uL (0-0.50) 11/18/21 06:03 Baso # (Auto) 0.05 K/uL (0-0.2) 11/18/21 06:03 Immature Gran # (Auto) 0.04 K/uL (0.00-0.02) H 11/18/21 06:03 PT 10.8 Seconds (9.0-12.0) 11/15/21 19:14 INR 1.0 (0.9-1.1) 11/15/21 19:14 APTT 22.8 Seconds (21.0-31.0) 11/15/21 19:14 PTT Ratio 0.8 11/15/21 19:14 Sodium 136 mmol/L (136-145) 11/18/21 06:03 Potassium 3.7 mmol/L (3.5-5.1) 11/18/21 06:03 Chloride 104 mmol/L (98-107) 11/18/21 06:03 Carbon Dioxide 26 mmol/L (21-32) 11/18/21 06:03 Anion Gap 6 (3-11) 11/18/21 06:03 BUN 17 mg/dl (6-23) 11/18/21 06:03 Creatinine 0.75 mg/dl (0.6-1.2) 11/18/21 06:03 Est Cr Clr Drug Dosing 50.0 ml/min 11/18/21 06:03 Est GFR ( Amer) 83.1 ml/min 11/18/21 06:03 Est GFR (Non-Af Amer) 71.7 ml/min 11/18/21 06:03 BUN/Creatinine Ratio 22.7 (10-20) H 11/18/21 06:03 Glucose 121 mg/dl (70-99(Fasting)) H 11/18/21 06:03 Calcium 8.1 mg/dl (8.5-10.1) L 11/18/21 06:03 Magnesium 1.9 mg/dl (1.7-2.4) 11/16/21 05:20 Total Bilirubin 0.7 mg/dl (0.2-1.0) 11/15/21 19:14 AST 20 U/L (13-39) 11/15/21 19:14 ALT 11 U/L (7-52) 11/15/21 19:14 Alkaline Phosphatase 48 U/L (34-104) 11/15/21 19:14 Total Protein 6.8 gm/dl (6.0-8.3) 11/15/21 19:14 Albumin 3.9 gm/dl (3.4-5.0) 11/15/21 19:14 Globulin 2.9 gm/dl (2.5-4.0) 11/15/21 19:14 Albumin/Globulin Ratio 1.3 (0.9-2) 11/15/21 19:14 Urine Color [place] 11/18/21 10:22 Urine Appearance Turbid (Clear) A 11/18/21 10:22 Urine pH 6.5 (4.5-7.5) 11/18/21 10:22 Ur Specific [place] 1.023 (1.000-1.030) 11/18/21 10:22 Urine Protein 3+ (Negative) H 11/18/21 10:22 Urine Glucose (UA) Negative (Negative) 11/18/21 10: Urine Ketones Negative (Negative) 11/18/21 10:22 Urine Blood 3+ (Negative) H 11/18/21 10:22 Urine Nitrite Positive (Negative) A 11/18/21 10: Urine Bilirubin 1+ (Negative) H 11/18/21 10:22 Urine Urobilinogen Negative (Negative) 11/18/21 10:22 Ur Leukocyte Esterase 3+ (Negative) H 11/18/21 10:22 Urine WBC (Auto) >30 /hpf (0-5) H 11/18/21 10:22 Urine RBC (Auto) >30 /hpf (0-4) H 11/18/21 10:22 U Hyaline Cast (Auto) 1-5 /lpf (0-5) 11/18/21 10:22 U Epithel Cells (Auto) 5-10 /lpf (0-5) H 11/18/21 10:22 Urine Bacteria (Auto) 4+ (Negative) H 11/18/21 10:22 SARS-CoV-2, RNA, NAAT NEGATIVE (NEGATIVE) 11/15/21 22:00 Blood Type A Positive 11/15/21 19:39 Antibody Screen NEGATIVE 11/15/21 19:39 Impressions Hip/Pelvis X-Ray 11/15/21 19:05 XR hip LT 2V w pelvis CLINICAL HISTORY: Hip fracture. COMPARISON: None FINDINGS: Sacroiliac joints and symphysis pubis are intact. Alignment of the right hip arthroplasty is anatomic. Visualized portions are intact. Note is made of an acute periprosthetic fracture adjacent to the proximal femoral component of the left hip arthroplasty with displacement of the lesser trochanter. IMPRESSION: Acute periprosthetic fracture of the proximal left femur with displacement of the lesser trochanter. ACT 112: Negative or not required by law. Electronically signed by: Michi Shepherd M.D. 11/15/2021 7:49 PM Chest X-Ray 11/15/21 19:06 XR chest 1V portable CLINICAL HISTORY: Hip fracture. COMPARISON STUDY: Chest radiograph April 15, 2021. FINDINGS: Lung volumes are normal. Lungs are clear. There is no pneumothorax or pleural effusion. Cardiac size is normal. Mediastinal contours are normal. There is no evidence for pulmonary edema. Bilateral breast implants are incidentally noted. IMPRESSION: No acute cardiopulmonary findings. ACT 112: Negative or not required by law. Electronically signed by: Michi Shepherd M.D. 11/15/2021 7:[address] 11/15/21 19:[address] WITHOUT CONTRAST CLINICAL HISTORY: left femur fx, with 3D recons COMPARISON STUDY: Pelvis and left hip radiograph performed earlier today. TECHNIQUE: Axial images of the left femur were obtained without IV contrast. Sagittal and coronal reconstructions were viewed. Automated exposure control was utilized for the study. A dose lowering technique was utilized adhering to the principles of ALARA. FINDINGS: Note is made of an acute periprosthetic fracture adjacent to the femoral component of the left hip arthroplasty. The lesser trochanter is displaced 1.1 cm. Fracture extends through the lateral cortex of the proximal left femur as well. Irregularity of the greater trochanter is chronic. Adjacent soft tissues are suboptimally assessed due to streak artifact from the left hip arthroplasty. No distal left femoral fracture is present. Alignment of the left knee is anatomic. Right hip arthroplasty is partially imaged. No significant abnormalities identified within the visualized pelvis. Symphysis pubis is intact. IMPRESSION: Acute displaced periprosthetic fracture adjacent to the femoral component of the left hip arthroplasty, as described above. ACT 112: Negative or not required by law. Electronically signed by: Michi Shepherd M.D. 11/15/2021 10:02 PM
[2021-11-18] MEDS: cefTRIAXone SODIUM 2,000 MG in DEXTROSE 5% 50 ML IV SCH (13:24)
[2021-11-18] MEDS: IRBESARTAN 150 MG TAB PO SCH (20:40)
[2021-11-18] MEDS: DONEPEZIL HCL 5 MG TAB PO SCH (20:40)
[2021-11-19] MEDS: LEVOTHYROXINE SODIUM 50 MCG TABLET PO SCH (06:15)
[2021-11-19] MEDS: ENOXAPARIN INJ 40 MG/0.4 ML SYR SQ SCH (08:16)
[2021-11-19] MEDS: PRAVASTATIN SOD 40 MG TAB PO SCH (08:16)
[2021-11-19 11:06] LABS: Basophils # (auto) 0.05 K/uL (0-0.2); Basophils % (auto) 0.6 %; Eosinophils # (auto) 0.11 K/uL (0-0.50); Eosinophils % (auto) 1.4 %; Hematocrit (blood only) 28.5 % (34.1-44.9); Hemoglobin 9.7 g/dl (12.0-16.0); Immature Granulocytes # (auto) 0.03 K/uL (0.00-0.02); Immature Granulocytes % (auto) 0.4 %; Lymphocytes # (auto) 1.44 K/uL (1.2-3.4); Lymphocytes % (auto) 18.7 %; Mean Corpuscular Hemoglobin 31.6 pg (25.0-34.0); Mean Corpuscular Volume 92.8 fL (80.0-100.0); Mean Platelet Volume 10.2 fL (9.4-12.3); Monocytes # (auto) 0.68 K/uL (0.24-0.82); Monocytes % (auto) 8.8 %; Neutrophils % (auto) 70.1 %; Platelet Count 217 K/uL (130-400); RDW Coefficient of Variation 11.9 % (11.5-14.5); RDW Standard Deviation 39.8 fL (36.4-46.3); Red Blood Count 3.07 M/uL (3.93-5.22); White Blood Count 7.71 K/ul (4.8-10.8)
[2021-11-19 11:38] LABS: BUN Creatinine Ratio 18.8 (10-20); Calcium 8.4 mg/dl (8.5-10.1); Creatinine Clr Calc Pharmacy 54.3 ml/min; Est GFR (African American) 90.7 ml/min; Est GFR (Non-African American) 78.3 ml/min; Potassium 3.3 mmol/L (3.5-5.1)
[2021-11-19] MEDS: cefTRIAXone SODIUM 2,000 MG in DEXTROSE 5% 50 ML IV SCH (12:35)
[2021-11-19] MEDS ORDERED: POTASSIUM CHLORIDE CRTAB 20 MEQ TABCR PO STA (15:05)
--- NOTE | 2021-11-19 15:08 | Hospitalist Progress Note ---
Date of Service November 19, 2021 Assessment & Plan (1) Closed left femoral fracture: (2) Fall: (3) HLD (hyperlipidemia): (4) HTN (hypertension): Plan ASSESSMENT AND PLAN: This is an 86-year-old female who presents with fall and left hip fracture. 1. Mechanical fall, left acute displaced periprosthetic fracture adjacent to the femoral component of the left hip arthroplasty: - No need for surgery as per orthopedics. Plan: - Pain control on current regimen. -Continue PT OT -Lovenox for DVT prophylaxis 2) Urinary Tract Infection, ruled out Noted to have foul-smelling urine with hematuria on 11/18. Urinalysis shows positive nitrate, high WBC and RBC count along with bacteria. Urine culture does not show any growth. Will discontinue ceftriaxone. 3. History of hypertension. Continue irbesartan . 4. Hypothyroidism. Continue Synthroid. 5. Hyperlipidemia. Continue statin. 6. Mild cognitive impairment. Continue donepezil. Monitor for any delirium. 7. Deep venous thrombosis prophylaxis. Lovenox DispoPT OT recommendation appreciated; nurse outreach case manager on board. Acute rehab versus subacute rehab. Patient is medically stable for discharge to rehab as per today's assessment. Discussed plan of care with her daughter Black over the phone. Admission and Anticipated Discharge Date Admission Date: November 15, 2021 Subjective Patient seen and examined at bedside. She is sitting up on the chair; not in any distress. She denies any fever, chills, chest pain, shortness of breath or abdominal pain. Review of Systems Review of Systems: All systems reviewed & are unremarkable except as noted in Subjective Physical Exam Physical Exam: GENERAL: The patient is of moderate build, not in acute distress. HEENT: Pupils equal, round and reactive to light. Oral mucosa moist. NECK: No JVD, no neck masses. CARDIOVASCULAR: S1 and S2 heard. Regular rate and rhythm. No murmur, no gallop. RESPIRATORY: Normal AP diameter. No accessory muscle use. No wheezing, no crackles. ABDOMEN: Soft, bowel sounds present, nontender, no distention. CENTRAL NERVOUS SYSTEM: Alert and oriented. Speech is clear. No facial droop. Obeys simple commands. Moves extremities. EXTREMITIES:Left thigh swollen; ROM limited by pain. Results & Data Results & Data ([facility]) Vital Signs (Past 12 Hours) Vital Signs Temp Pulse Resp BP Pulse Ox O2 Del Method 11/19/21 08:00 36.8 C 60 20 124/73 97 Room Air Laboratory Results Laboratory Results WBC 7.71 K/ul (4.8-10.8) 11/19/21 10:34 RBC 3.07 M/uL (3.93-5.22) L 11/19/21 10:34 Hgb 9.7 g/dl (12.0-16.0) L 11/19/21 10:34 Hct 28.5 % (34.1-44.9) L 11/19/21 10:34 MCV 92.8 fL (80.0-100.0) 11/19/21 10:34 MCH 31.6 pg (25.0-34.0) 11/19/21 10:34 MCHC 34.0 g/dL (32.0-36.0) 11/19/21 10:34 RDW Std Deviation 39.8 fL (36.4-46.3) 11/19/21 10:34 RDW Coeff of Robert 11.9 % (11.5-14.5) 11/19/21 10:34 Plt Count 217 K/uL (130-400) 11/19/21 10:34 MPV 10.2 fL (9.4-12.3) 11/19/21 10:34 Immature Gran % (Auto) 0.4 % 11/19/21 10:34 Neut % (Auto) 70.1 % 11/19/21 10:34 Lymph % (Auto) 18.7 % 11/19/21 10:34 [place] % (Auto) 8.8 % 11/19/21 10:34 Eos % (Auto) 1.4 % 11/19/21 10:34 Baso % (Auto) 0.6 % 11/19/21 10:34 Neut # (Auto) 5.40 K/uL (1.4-6.5) 11/19/21 10:34 Lymph # (Auto) 1.44 K/uL (1.2-3.4) 11/19/21 10:34 [place] # (Auto) 0.68 K/uL (0.24-0.82) 11/19/21 10:34 Eos # (Auto) 0.11 K/uL (0-0.50) 11/19/21 10:34 Baso # (Auto) 0.05 K/uL (0-0.2) 11/19/21 10:34 Immature Gran # (Auto) 0.03 K/uL (0.00-0.02) H 11/19/21 10:34 PT 10.8 Seconds (9.0-12.0) 11/15/21 19:14 INR 1.0 (0.9-1.1) 11/15/21 19:14 APTT 22.8 Seconds (21.0-31.0) 11/15/21 19:14 PTT Ratio 0.8 11/15/21 19:14 Sodium 134 mmol/L (136-145) L 11/19/21 10:34 Potassium 3.3 mmol/L (3.5-5.1) L 11/19/21 10:34 Chloride 102 mmol/L (98-107) 11/19/21 10:34 Carbon Dioxide 24 mmol/L (21-32) 11/19/21 10:34 Anion Gap 8 (3-11) 11/19/21 10:34 BUN 13 mg/dl (6-23) 11/19/21 10:34 Creatinine 0.69 mg/dl (0.6-1.2) 11/19/21 10:34 Est Cr Clr Drug Dosing 54.3 ml/min 11/19/21 10:34 Est GFR ( Amer) 90.7 ml/min 11/19/21 10:34 Est GFR (Non-Af Amer) 78.3 ml/min 11/19/21 10:34 BUN/Creatinine Ratio 18.8 (10-20) 11/19/21 10:34 Glucose 112 mg/dl (70-99(Fasting)) H 11/19/21 10:34 Calcium 8.4 mg/dl (8.5-10.1) L 11/19/21 10:34 Magnesium 1.9 mg/dl (1.7-2.4) 11/16/21 05:20 Total Bilirubin 0.7 mg/dl (0.2-1.0) 11/15/21 19:14 AST 20 U/L (13-39) 11/15/21 19:14 ALT 11 U/L (7-52) 11/15/21 19:14 Alkaline Phosphatase 48 U/L (34-104) 11/15/21 19:14 Total Protein 6.8 gm/dl (6.0-8.3) 11/15/21 19:14 Albumin 3.9 gm/dl (3.4-5.0) 11/15/21 19:14 Globulin 2.9 gm/dl (2.5-4.0) 11/15/21 19:14 Albumin/Globulin Ratio 1.3 (0.9-2) 11/15/21 19:14 Urine Color [place] 11/18/21 10:22 Urine Appearance Turbid (Clear) A 11/18/21 10:22 Urine pH 6.5 (4.5-7.5) 11/18/21 10:22 Ur Specific [place] 1.023 (1.000-1.030) 11/18/21 10:22 Urine Protein 3+ (Negative) H 11/18/21 10:22 Urine Glucose (UA) Negative (Negative) 11/18/21 10: Urine Ketones Negative (Negative) 11/18/21 10:22 Urine Blood 3+ (Negative) H 11/18/21 10:22 Urine Nitrite Positive (Negative) A 11/18/21 10:22 Urine Bilirubin 1+ (Negative) H 11/18/21 10:22 Urine Urobilinogen Negative (Negative) 11/18/21 10:22 Ur Leukocyte Esterase 3+ (Negative) H 11/18/21 10:22 Urine WBC (Auto) >30 /hpf (0-5) H 11/18/21 10:22 Urine RBC (Auto) >30 /hpf (0-4) H 11/18/21 10:22 U Hyaline Cast (Auto) 1-5 /lpf (0-5) 11/18/21 10:22 U Epithel Cells (Auto) 5-10 /lpf (0-5) H 11/18/21 10:22 Urine Bacteria (Auto) 4+ (Negative) H 11/18/21 10:22 SARS-CoV-2, RNA, NAAT NEGATIVE (NEGATIVE) 11/15/21 22:00 Blood Type A Positive 11/15/21 19:39 Antibody Screen NEGATIVE 11/15/21 19:39 Impressions Hip/Pelvis X-Ray 11/15/21 19:05 XR hip LT 2V w pelvis CLINICAL HISTORY: Hip fracture. COMPARISON: None FINDINGS: Sacroiliac joints and symphysis pubis are intact. Alignment of the right hip arthroplasty is anatomic. Visualized portions are intact. Note is made of an acute periprosthetic fracture adjacent to the proximal femoral component of the left hip arthroplasty with displacement of the lesser trochanter. IMPRESSION: Acute periprosthetic fracture of the proximal left femur with displacement of the lesser trochanter. ACT 112: Negative or not required by law. Electronically signed by: Michi Shepherd M.D. 11/15/2021 7:49 PM Chest X-Ray 11/15/21 19:06 XR chest 1V portable CLINICAL HISTORY: Hip fracture. COMPARISON STUDY: Chest radiograph April 15, 2021. FINDINGS: Lung volumes are normal. Lungs are clear. There is no pneumothorax or pleural effusion. Cardiac size is normal. Mediastinal contours are normal. There is no evidence for pulmonary edema. Bilateral breast implants are incidentally noted. IMPRESSION: No acute cardiopulmonary findings. ACT 112: Negative or not required by law. Electronically signed by: Michi Shepherd M.D. 11/15/2021 7:[address] 11/15/21 19:[address] WITHOUT CONTRAST CLINICAL HISTORY: left femur fx, with 3D recons COMPARISON STUDY: Pelvis and left hip radiograph performed earlier today. TECHNIQUE: Axial images of the left femur were obtained without IV contrast. Sagittal and coronal reconstructions were viewed. Automated exposure control was utilized for the study. A dose lowering technique was utilized adhering to the principles of ALARA. FINDINGS: Note is made of an acute periprosthetic fracture adjacent to the femoral component of the left hip arthroplasty. The lesser trochanter is displa miriam 1.1 cm. Fracture extends through the lateral cortex of the proximal left femur as well. Irregularity of the greater trochanter is chronic. Adjacent soft tissues are suboptimally assessed due to streak artifact from the left hip arthroplasty. No distal left femoral fracture is present. Alignment of the left knee is anatomic. Right hip arthroplasty is partially imaged. No significant abnormalities identified within the visualized pelvis. Symphysis pubis is intact. IMPRESSION: Acute displaced periprosthetic fracture adjacent to the femoral component of the left hip arthroplasty, as described above. ACT 112: Negative or not required by law. Electronically signed by: Michi Shepherd M.D. 11/15/2021 10:02 PM
[2021-11-19] MEDS: DICLOFENAC SOD 1% GEL 100 GM TUBE EXT PRN (16:00)
[2021-11-19] MEDS: DONEPEZIL HCL 5 MG TAB PO SCH (20:07)
[2021-11-19] MEDS: IRBESARTAN 150 MG TAB PO SCH (20:07)
[2021-11-20] MEDS: LEVOTHYROXINE SODIUM 50 MCG TABLET PO SCH (05:54)
[2021-11-20 07:39] LABS: Basophils # (auto) 0.05 K/uL (0-0.2); Basophils % (auto) 0.9 %; Eosinophils # (auto) 0.16 K/uL (0-0.50); Eosinophils % (auto) 2.8 %; Hematocrit (blood only) 28.2 % (34.1-44.9); Hemoglobin 9.7 g/dl (12.0-16.0); Immature Granulocytes # (auto) 0.03 K/uL (0.00-0.02); Immature Granulocytes % (auto) 0.5 %; Lymphocytes # (auto) 1.61 K/uL (1.2-3.4); Lymphocytes % (auto) 27.8 %; Mean Corpuscular Hgb Conc 34.4 g/dL (32.0-36.0); Mean Corpuscular Volume 93.1 fL (80.0-100.0); Monocytes # (auto) 0.58 K/uL (0.24-0.82); Neutrophils # (auto) 3.36 K/uL (1.4-6.5); Platelet Count 243 K/uL (130-400); RDW Coefficient of Variation 11.8 % (11.5-14.5); RDW Standard Deviation 39.8 fL (36.4-46.3); Red Blood Count 3.03 M/uL (3.93-5.22); White Blood Count 5.79 K/ul (4.8-10.8)
[2021-11-20] MEDS: PRAVASTATIN SOD 40 MG TAB PO SCH (07:56)
[2021-11-20] MEDS: ENOXAPARIN INJ 40 MG/0.4 ML SYR SQ SCH (07:56)
[2021-11-20] MEDS: DICLOFENAC SOD 1% GEL 100 GM TUBE EXT PRN ×2 (07:56→21:46)
[2021-11-20 08:23] LABS: Potassium 4.4 mmol/L (3.5-5.1)
[2021-11-20 08:24] LABS: BUN Creatinine Ratio 22.4 (10-20); Calcium 8.6 mg/dl (8.5-10.1); Est GFR (African American) 91.6 ml/min
--- NOTE | 2021-11-20 14:40 | Hospitalist Progress Note ---
Date of Service November 20, 2021 Assessment & Plan (1) Closed left femoral fracture: (2) Fall: (3) HLD (hyperlipidemia): (4) HTN (hypertension): Plan ASSESSMENT AND PLAN: This is an 86-year-old female who presents with fall and left hip fracture. 1. Mechanical fall, left acute displaced periprosthetic fracture adjacent to the femoral component of the left hip arthroplasty: - No need for surgery as per orthopedics. Plan: - Pain control on current regimen. -Continue PT OT -Lovenox for DVT prophylaxis -She will need outpatient follow-up in [address] Michel. 2) Urinary Tract Infection, ruled out Noted to have foul-smelling urine with hematuria on 11/18. Urinalysis shows positive nitrate, high WBC and RBC count along with bacteria. Urine culture does not show any growth. 3) Anemia: -Noted to have a hemoglobin drop since the admission and has stable at 9.7 -No signs of active bleeding. ? Related with Fracture - Follow up with outpatient with PCP 4. History of hypertension. Continue irbesartan . 5. Hypothyroidism. Continue Synthroid. 6. Hyperlipidemia. Continue statin. 7. Mild cognitive impairment. Continue donepezil. Monitor for any delirium. 8. Deep venous thrombosis prophylaxis. Lovenox DispoPT OT recommendation appreciated; medical case manager on board. Rejected for acute rehab. Case management on board for placement in subacute rehab. Admission and Anticipated Discharge Date Admission Date: November 15, 2021 Subjective Patient seen and examined at bedside. She is comfortable; not in any distress. Review of Systems Review of Systems: All systems reviewed & are unremarkable except as noted in Subjective Physical Exam Physical Exam: GENERAL: The patient is of moderate build, not in acute distress. HEENT: Pupils equal, round and reactive to light. Oral mucosa moist. NECK: No JVD, no neck masses. CARDIOVASCULAR: S1 and S2 heard. Regular rate and rhythm. No murmur, no gall op. RESPIRATORY: Normal AP diameter. No accessory muscle use. No wheezing, no crackles. ABDOMEN: Soft, bowel sounds present, nontender, no distention. CENTRAL NERVOUS SYSTEM: Alert and oriented. Speech is clear. No facial droop. Obeys simple commands. Moves extremities. EXTREMITIES:Left thigh swollen; ROM limited by pain. Results & Data Results & Data ([facility]) Vital Signs (Past 12 Hours) Vital Signs Temp Pulse Resp BP Pulse Ox O2 Del Method 11/20/21 07:50 36.5 C 62 18 124/67 96 Room Air Laboratory Results Laboratory Results WBC 5.79 K/ul (4.8-10.8) 11/20/21 07:18 RBC 3.03 M/uL (3.93-5.22) L 11/20/21 07:18 Hgb 9.7 g/dl (12.0-16.0) L 11/20/21 07:18 Hct 28.2 % (34.1-44.9) L 11/20/21 07:18 MCV 93.1 fL (80.0-100.0) 11/20/21 07:18 MCH 32.0 pg (25.0-34.0) 11/20/21 07:18 MCHC 34.4 g/dL (32.0-36.0) 11/20/21 07:18 RDW Std Deviation 39.8 fL (36.4-46.3) 11/20/21 07:18 RDW Coeff of Robert 11.8 % (11.5-14.5) 11/20/21 07:18 Plt Count 243 K/uL (130-400) 11/20/21 07:18 MPV 10.0 fL (9.4-12.3) 11/20/21 07:18 Immature Gran % (Auto) 0.5 % 11/20/21 07:18 Neut % (Auto) 58.0 % 11/20/21 07:18 Lymph % (Auto) 27.8 % 11/20/21 07:18 [place] % (Auto) 10.0 % 11/20/21 07:18 Eos % (Auto) 2.8 % 11/20/21 07:18 Baso % (Auto) 0.9 % 11/20/21 07:18 Neut # (Auto) 3.36 K/uL (1.4-6.5) 11/20/21 07:18 Lymph # (Auto) 1.61 K/uL (1.2-3.4) 11/20/21 07:18 [place] # (Auto) 0.58 K/uL (0.24-0.82) 11/20/21 07:18 Eos # (Auto) 0.16 K/uL (0-0.50) 11/20/21 07:18 Baso # (Auto) 0.05 K/uL (0-0.2) 11/20/21 07:18 Immature Gran # (Auto) 0.03 K/uL (0.00-0.02) H 11/20/21 07:18 PT 10.8 Seconds (9.0-12.0) 11/15/21 19:14 INR 1.0 (0.9-1.1) 11/15/21 19:14 APTT 22.8 Seconds (21.0-31.0) 11/15/21 19:14 PTT Ratio 0.8 11/15/21 19:14 Sodium 138 mmol/L (136-145) 11/20/21 07:18 Potassium 4.4 mmol/L (3.5-5.1) D 11/20/21 07:18 Chloride 107 mmol/L (98-107) 11/20/21 07:18 Carbon Dioxide 26 mmol/L (21-32) 11/20/21 07:18 Anion Gap 5 (3-11) 11/20/21 07:18 BUN 15 mg/dl (6-23) 11/20/21 07:18 Creatinine 0.67 mg/dl (0.6-1.2) 11/20/21 07:18 Est Cr Clr Drug Dosing 56.0 ml/min 11/20/21 07:18 Est GFR ( Amer) 91.6 ml/min 11/20/21 07:18 Est GFR (Non-Af Amer) 79.0 ml/min 11/20/21 07:18 BUN/Creatinine Ratio 22.4 (10-20) H 11/20/21 07:18 Glucose 101 mg/dl (70-99(Fasting)) H 11/20/21 07:18 Calcium 8.6 mg/dl (8.5-10.1) 11/20/21 07:18 Magnesium 1.9 mg/dl (1.7-2.4) 11/16/21 05:20 Total Bilirubin 0.7 mg/dl (0.2-1.0) 11/15/21 19:14 AST 20 U/L (13-39) 11/15/21 19:14 ALT 11 U/L (7-52) 11/15/21 19:14 Alkaline Phosphatase 48 U/L (34-104) 11/15/21 19:14 Total Protein 6.8 gm/dl (6.0-8.3) 11/15/21 19:14 Albumin 3.9 gm/dl (3.4-5.0) 11/15/21 19:14 Globulin 2.9 gm/dl (2.5-4.0) 11/15/21 19:14 Albumin/Globulin Ratio 1.3 (0.9-2) 11/15/21 19:14 Urine Color [place] 11/18/21 10:22 Urine Appearance Turbid (Clear) A 11/18/21 10:22 Urine pH 6.5 (4.5-7.5) 11/18/21 10:22 Ur Specific [place] 1.023 (1.000-1.030) 11/18/21 10:22 Urine Protein 3+ (Negative) H 11/18/21 10:22 Urine Glucose (UA) Negative (Negative) 11/18/21 10: Urine Ketones Negative (Negative) 11/18/21 10:22 Urine Blood 3+ (Negative) H 11/18/21 10:22 Urine Nitrite Positive (Negative) A 11/18/21 10:22 Urine Bilirubin 1+ (Negative) H 11/18/21 10:22 Urine Urobilinogen Negative (Negative) 11/18/21 10:22 Ur Leukocyte Esterase 3+ (Negative) H 11/18/21 10:22 Urine WBC (Auto) >30 /hpf (0-5) H 11/18/21 10:22 Urine RBC (Auto) >30 /hpf (0-4) H 11/18/21 10:22 U Hyaline Cast (Auto) 1-5 /lpf (0-5) 11/18/21 10:22 U Epithel Cells (Auto) 5-10 /lpf (0-5) H 11/18/21 10:22 Urine Bacteria (Auto) 4+ (Negative) H 11/18/21 10:22 SARS-CoV-2, RNA, NAAT NEGATIVE (NEGATIVE) 11/15/21 22:00 Blood Type A Positive 11/15/21 19:39 Antibody Screen NEGATIVE 11/15/21 19:39 Impressions Hip/Pelvis X-Ray 11/15/21 19:05 XR hip LT 2V w pelvis CLINICAL HISTORY: Hip fracture. COMPARISON: None FINDINGS: Sacroiliac joints and symphysis pubis are intact. Alignment of the right hip arthroplasty is anatomic. Visualized portions are intact. Note is made of an acute periprosthetic fracture adjacent to the proximal femoral component of the left hip arthroplasty with displacement of the lesser trochanter. IMPRESSION: Acute periprosthetic fracture of the proximal left femur with displacement of the lesser trochanter. ACT 112: Negative or not required by law. Electronically signed by: Michi Shepherd M.D. 11/15/2021 7:49 PM Chest X-Ray 11/15/21 19:06 XR chest 1V portable CLINICAL HISTORY: Hip fracture. COMPARISON STUDY: Chest radiograph April 15, 2021. FINDINGS: Lung volumes are normal. Lungs are clear. There is no pneumothorax or pleural effusion. Cardiac size is normal. Mediastinal contours are normal. There is no evidence for pulmonary edema. Bilateral breast implants are incidentally noted. IMPRESSION: No acute cardiopulmonary findings. ACT 112: Negative or not required by law. Electronically signed by: Michi Shepherd M.D. 11/15/2021 7:[address] 11/15/21 19:[address] WITHOUT CONTRAST CLINICAL HISTORY: left femur fx, with 3D recons COMPARISON STUDY: Pelvis and left hip radiograph performed earlier today. TECHNIQUE: Axial images of the left femur were obtained without IV contrast. Sagittal and coronal reconstructions were viewed. Automated exposure control was utilized for the study. A dose lowering technique was utilized adhering to the principles of ALARA. FINDINGS: Note is made of an acute periprosthetic fracture adjacent to the femoral component of the left hip arthroplasty. The lesser trochanter is displaced 1.1 cm. Fracture extends through the lateral cortex of the proximal left femur as well. Irregularity of the greater trochanter is chronic. Adjacent soft tissues are suboptimally assessed due to streak artifact from the left hip arthroplasty. No distal left femoral fracture is present. Alignment of the left knee is anatomic. Right hip arthroplasty is partially imaged. No significant abnormalities identified within the visualized pelvis. Symphysis pubis is intact. IMPRESSION: Acute displaced periprosthetic fracture adjacent to the femoral component of the left hip arthroplasty, as described above. ACT 112: Negative or not required by law. Electronically signed by: Michi Shepherd M.D. 11/15/2021 10:02 PM
--- NOTE | 2021-11-20 15:27 | Progress Notes ---
SUBJECTIVE: An 86-year-old female admitted with a periprosthetic femur fracture and trochanteric avu lsion. She seems to be getting a little bit better daily. Therapy is going okay. Just waiting for placement. OBJECTIVE: VITAL SIGNS: Temperature is 36.5. Vital signs are stable. PHYSICAL EXAMINATION: GENERAL: Shows a pleasant, frail, elderly female. She was sitting up in bed, eating lunch when I vi sited today. EXTREMITIES: Examination of the left leg reveals it to be well aligned. She does have some tenderne ss to palpation around her thigh. There is no bruising, no swelling. She can dorsiflex and plantarf sathish her foot appropriately. She still cannot quite do a straight leg raise. A fairly minimal pain w ith passive hip motion. ASSESSMENT: An 86-year-old female status post a fall with a periprosthetic femur fracture that looks to be stable. Looks to be a lesser trochanter avulsion. The rest of the implant looks pretty stabl e. She seems to be getting better. PLAN: We will continue therapy and mobilization. She can weight bear as tolerated. I need to see h er back in about 2 weeks. Any orthopedic questions can be directed to me at [phone]. Job ID: [id number]
[2021-11-20] MEDS: DONEPEZIL HCL 5 MG TAB PO SCH (21:46)
[2021-11-20] MEDS: IRBESARTAN 150 MG TAB PO SCH (21:46)
[2021-11-21] MEDS: ACETAMINOPHEN 325 MG TAB PO PRN (01:55)
[2021-11-21] MEDS: LEVOTHYROXINE SODIUM 50 MCG TABLET PO SCH (05:59)
[2021-11-21 07:00] LABS: Basophils # (auto) 0.05 K/uL (0-0.2); Basophils % (auto) 0.9 %; Eosinophils # (auto) 0.29 K/uL (0-0.50); Hematocrit (blood only) 28.2 % (34.1-44.9); Hemoglobin 9.8 g/dl (12.0-16.0); Immature Granulocytes # (auto) 0.03 K/uL (0.00-0.02); Immature Granulocytes % (auto) 0.5 %; Lymphocytes # (auto) 1.84 K/uL (1.2-3.4); Lymphocytes % (auto) 31.7 %; Mean Corpuscular Hemoglobin 32.2 pg (25.0-34.0); Mean Corpuscular Hgb Conc 34.8 g/dL (32.0-36.0); Mean Corpuscular Volume 92.8 fL (80.0-100.0); Mean Platelet Volume 9.7 fL (9.4-12.3); Monocytes # (auto) 0.54 K/uL (0.24-0.82); Monocytes % (auto) 9.3 %; Neutrophils # (auto) 3.06 K/uL (1.4-6.5); Neutrophils % (auto) 52.6 %; Platelet Count 287 K/uL (130-400); RDW Coefficient of Variation 11.8 % (11.5-14.5); RDW Standard Deviation 39.7 fL (36.4-46.3); Red Blood Count 3.04 M/uL (3.93-5.22); White Blood Count 5.81 K/ul (4.8-10.8)
[2021-11-21 07:28] LABS: BUN Creatinine Ratio 27.8 (10-20); Calcium 8.5 mg/dl (8.5-10.1); Creatinine Clr Calc Pharmacy 52.1 ml/min; Est GFR (African American) 87.3 ml/min; Est GFR (Non-African American) 75.3 ml/min; Potassium 4.1 mmol/L (3.5-5.1)
[2021-11-21] MEDS: PRAVASTATIN SOD 40 MG TAB PO SCH (07:59)
[2021-11-21] MEDS: ENOXAPARIN INJ 40 MG/0.4 ML SYR SQ SCH (08:00)
--- NOTE | 2021-11-21 09:46 | Hospitalist Progress Note ---
Date of Service November 21, 2021 Assessment & Plan (1) Closed left femoral fracture: (2) Fall: (3) HLD (hyperlipidemia): (4) HTN (hypertension): Plan Patient is an 86 yr female who presents with fall and left hip fracture. Mechanical fall Left acute displaced periprosthetic fracture adjacent to the femoral component of the left hip arthroplasty: --Left Femur CT:Acute displaced periprosthetic fracture adjacent to the femoral component of the left hip arthroplasty, as described above. --Hip/Pelvic X ray:Acute periprosthetic fracture of the proximal left femur with displacement of the lesser trochanter. -- The implant itself appears stable as per orthopedics Appreciate orthopedics input Patient does not require any surgery as per orthopedics Continue PT OT, mobilization Weightbearing as tolerated Fall precautions Needs follow-up with orthopedics in 2 weeks upon discharge Plan to be discharged to rehab facility Suspected Urinary Tract Infection--ruled out Noted to have foul-smelling urine with hematuria on 11/18. Urinalysis shows positive nitrate, high WBC and RBC count along with bacteria. Urine culture does not show any growth. Chronic Anemia: Noted to have a hemoglobin drop since the admission and has stable Hb 9.8 No signs of active bleeding. ? Related with Fracture Follow up with PCP as outpatient Hypertension Continue irbesartan . Hypothyroidism Continue Levothyroxine Hyperlipidemia Continue statin. Mild cognitive impairment Continue donepezil DVT Px: Lovenox SQ Disposition SNF Admission and Anticipated Discharge Date Admission Date: November 15, 2021 Subjective Patient is seen and examined at bedside States having left hip pain with standing and ambulating only Denies any chest pain, shortness breath, dizziness, nausea, abdominal pain Offers no other complaints Plan to be discharged to rehab facility today Review of Systems Review of Systems: All systems reviewed & are unremarkable except as noted in Subjective Physical Exam Physical Exam: Physical Exam: Vitals signs as noted above General Appearance:Moderately built and nourished, no apparent distress, Elderly Head: normocephalic, Atraumatic Eyes: normal inspection, EOMI Neck: supple, Trachea midline Respiratory/Chest: Normal breath sounds, CTA, No accessory muscle use Cardiovascular: S1, S2, No murmur Abdomen/GI:Soft, Non tender, Bowel sounds present Extremities/Musculoskeletal:normal inspection, no edema, L hip mild tender, mildy decreased ROM due to pain Neurologic/Psych:AAOX3, grossly no focal neurological deficits Skin: normal color, warm Results & Data Results & Data ([facility]) Vital Signs (Past 12 Hours) Vital Signs Temp Pulse Pulse Resp BP Pulse Ox O2 Del Method 11/21/21 08:00 36.8 C 73 22 97 Room Air 11/20/21 22:04 Room Air 11/20/21 21:59 36.9 C 74 18 161/74 H 96 Room Air
--- NOTE | 2021-11-21 10:06 | Discharge Summary ---
Date of Service November 21, 2021 Admission HPI Per Admitting Provider CHIEF COMPLAINT: Status post fall and left hip femur fracture. HISTORY OF PRESENT ILLNESS: An 86-year-old female with past medical history significant for hypertension, hyperlipidemia, mild cognitive impairment, hypo thyroidism, history of low back pain, presents with a fall. The patient lives at home with her daughter. She says she slipped from the bed onto her right side and she got up and when she tried to walk, she put long steps and again slipped and fell down again. At this time, she had a lot of pain on the left side. She did not hit her head.Was brought to the hospital and found to have a left acute displaced periprosthetic fracture adjacent to the femoral component of the left hip arthroplasty. Currently with slight movement, she is in a lot of pain. Otherwise, she is hemodynamically stable. Denies any headache. No blurred visions, no earache, no runny nose, no sore throat, no cough, no fever. Appetite is okay. No difficulty swallowing. No chest pain, no shortness of breath, no nausea, no abdominal pain. Normal bowel and bladder movements. She says she ambulates at home without support, but when she goes outside, she uses cane and she says she easily can walk a block. Admission Exam Per Admitting Provider PHYSICAL EXAMINATION: GENERAL: The patient is of moderate build, not in acute distress. VITAL SIGNS: Temperature 37.5, pulse 62, respiratory rate 20, blood pressure 146/66, oxygen 99% on room air. HEENT: Pupils equal, round and reactive to light. Oral mucosa moist. NECK: No JVD, no neck masses. CARDIOVASCULAR: S1 and S2 heard. Regular rate and rhythm. No murmur, no gallop. RESPIRATORY: Normal AP diameter. No accessory muscle use. No wheezing, no crackles. ABDOMEN: Soft, bowel sounds present, nontender, no distention. CENTRAL NERVOUS SYSTEM: Alert and oriented. Speech is clear. No facial droop. Obeys simple commands. Moves extremities. EXTREMITIES: Left lower extremity is slightly shortened. No edema or erythema seen. Principal Diagnosis Left Periprosthetic femur fracture - Lesser trochanter avulsion Mechanical Fall Discharge Data Allergies Allergy/AdvReac Type Severity Reaction Status Date / Time No Known Allergies AdvReac Unknown Unverified 11/05/04 22:51 Consultations 11/15/21 19:59 Consult Orthopedic Surgery Stat ED Decision to Admit Stat Procedures Performed Laboratory Results WBC 5.81 K/ul (4.8-10.8) 11/21/21 06:33 RBC 3.04 M/uL (3.93-5.22) L 11/21/21 06:33 Hgb 9.8 g/dl (12.0-16.0) L 11/21/21 06:33 Hct 28.2 % (34.1-44.9) L 11/21/21 06:33 MCV 92.8 fL (80.0-100.0) 11/21/21 06:33 MCH 32.2 pg (25.0-34.0) 11/21/21 06:33 MCHC 34.8 g/dL (32.0-36.0) 11/21/21 06:33 RDW Std Deviation 39.7 fL (36.4-46.3) 11/21/21 06:33 RDW Coeff of Robert 11.8 % (11.5-14.5) 11/21/21 06:33 Plt Count 287 K/uL (130-400) 11/21/21 06:33 MPV 9.7 fL (9.4-12.3) 11/21/21 06:33 Immature Gran % (Auto) 0.5 % 11/21/21 06:33 Neut % (Auto) 52.6 % 11/21/21 06:33 Lymph % (Auto) 31.7 % 11/21/21 06:33 [place] % (Auto) 9.3 % 11/21/21 06:33 Eos % (Auto) 5.0 % 11/21/21 06:33 Baso % (Auto) 0.9 % 11/21/21 06:33 Neut # (Auto) 3.06 K/uL (1.4-6.5) 11/21/21 06:33 Lymph # (Auto) 1.84 K/uL (1.2-3.4) 11/21/21 06:33 [place] # (Auto) 0.54 K/uL (0.24-0.82) 11/21/21 06:33 Eos # (Auto) 0.29 K/uL (0-0.50) 11/21/21 06:33 Baso # (Auto) 0.05 K/uL (0-0.2) 11/21/21 06:33 Immature Gran # (Auto) 0.03 K/uL (0.00-0.02) H 11/21/21 06:33 PT 10.8 Seconds (9.0-12.0) 11/15/21 19:14 INR 1.0 (0.9-1.1) 11/15/21 19:14 APTT 22.8 Seconds (21.0-31.0) 11/15/21 19:14 PTT Ratio 0.8 11/15/21 19:14 Sodium 136 mmol/L (136-145) 11/21/21 06:33 Potassium 4.1 mmol/L (3.5-5.1) 11/21/21 06:33 Chloride 107 mmol/L (98-107) 11/21/21 06:33 Carbon Dioxide 24 mmol/L (21-32) 11/21/21 06:33 Anion Gap 5 (3-11) 11/21/21 06:33 BUN 20 mg/dl (6-23) 11/21/21 06:33 Creatinine 0.72 mg/dl (0.6-1.2) 11/21/21 06:33 Est Cr Clr Drug Dosing 52.1 ml/min 11/21/21 06:33 Est GFR ( Amer) 87.3 ml/min 11/21/21 06:33 Est GFR (Non-Af Amer) 75.3 ml/min 11/21/21 06:33 BUN/Creatinine Ratio 27.8 (10-20) H 11/21/21 06:33 Glucose 101 mg/dl (70-99(Fasting)) H 11/21/21 06:33 Calcium 8.5 mg/dl (8.5-10.1) 11/21/21 06:33 Magnesium 1.9 mg/dl (1.7-2.4) 11/16/21 05:20 Total Bilirubin 0.7 mg/dl (0.2-1.0) 11/15/21 19:14 AST 20 U/L (13-39) 11/15/21 19:14 ALT 11 U/L (7-52) 11/15/21 19:14 Alkaline Phosphatase 48 U/L (34-104) 11/15/21 19:14 Total Protein 6.8 gm/dl (6.0-8.3) 11/15/21 19:14 Albumin 3.9 gm/dl (3.4-5.0) 11/15/21 19:14 Globulin 2.9 gm/dl (2.5-4.0) 11/15/21 19:14 Albumin/Globulin Ratio 1.3 (0.9-2) 11/15/21 19:14 Urine Color Pope 11/18/21 10:22 Urine Appearance Turbid (Clear) A 11/18/21 10:22 Urine pH 6.5 (4.5-7.5) 11/18/21 10:22 Ur Specific Palmer 1.023 (1.000-1.030) 11/18/21 10:22 Urine Protein 3+ (Negative) H 11/18/21 10:22 Urine Glucose (UA) Negative (Negative) 11/18/21 10: Urine Ketones Negative (Negative) 11/18/21 10:22 Urine Blood 3+ (Negative) H 11/18/21 10:22 Urine Nitrite Positive (Negative) A 11/18/21 10:22 Urine Bilirubin 1+ (Negative) H 11/18/21 10:22 Urine Urobilinogen Negative (Negative) 11/18/21 10:22 Ur Leukocyte Esterase 3+ (Negative) H 11/18/21 10:22 Urine WBC (Auto) >30 /hpf (0-5) H 11/18/21 10:22 Urine RBC (Auto) >30 /hpf (0-4) H 11/18/21 10:22 U Hyaline Cast (Auto) 1-5 /lpf (0-5) 11/18/21 10:22 U Epithel Cells (Auto) 5-10 /lpf (0-5) H 11/18/21 10:22 Urine Bacteria (Auto) 4+ (Negative) H 11/18/21 10:22 SARS-CoV-2, RNA, NAAT NEGATIVE (NEGATIVE) 11/15/21 22:00 Blood Type A Positive 11/15/21 19:39 Antibody Screen NEGATIVE 11/15/21 19:39 Impressions Hip/Pelvis X-Ray 11/15/21 19:05 XR hip LT 2V w pelvis CLINICAL HISTORY: Hip fracture. COMPARISON: None FINDINGS: Sacroiliac joints and symphysis pubis are intact. Alignment of the right hip arthroplasty is anatomic. Visualized portions are intact. Note is made of an acute periprosthetic fracture adjacent to the proximal femoral component of the left hip arthroplasty with displacement of the lesser trochanter. IMPRESSION: Acute periprosthetic fracture of the proximal left femur with displacement of the lesser trochanter. ACT 112: Negative or not required by law. Electronically signed by: Michi Shepherd M.D. 11/15/2021 7:49 PM Chest X-Ray 11/15/21 19:06 XR chest 1V portable CLINICAL HISTORY: Hip fracture. COMPARISON STUDY: Chest radiograph April 15, 2021. FINDINGS: Lung volumes are normal. Lungs are clear. There is no pneumothorax or pleural effusion. Cardiac size is normal. Mediastinal contours are normal. There is no evidence for pulmonary edema. Bilateral breast implants are incidentally noted. IMPRESSION: No acute cardiopulmonary findings. ACT 112: Negative or not required by law. Electronically signed by: Michi Shepherd M.D. 11/15/2021 7:[address] 11/15/21 19:[address] WITHOUT CONTRAST CLINICAL HISTORY: left femur fx, with 3D recons COMPARISON STUDY: Pelvis and left hip radiograph performed earlier today. TECHNIQUE: Axial images of the left femur were obtained without IV contrast. Sagittal and coronal reconstructions were viewed. Automated exposure control was utilized for the study. A dose lowering technique was utilized adhering to the principles of ALARA. FINDINGS: Note is made of an acute periprosthetic fracture adjacent to the femoral component of the left hip arthroplasty. The lesser trochanter is displ aced 1.1 cm. Fracture extends through the lateral cortex of the proximal left femur as well. Irregularity of the greater trochanter is chronic. Adjacent soft tissues are suboptimally assessed due to streak artifact from the left hip arthroplasty. No distal left femoral fracture is present. Alignment of the left knee is anatomic. Right hip arthroplasty is partially imaged. No significant abnormalities identified within the visualized pelvis. Symphysis pubis is intact. IMPRESSION: Acute displaced periprosthetic fracture adjacent to the femoral component of the left hip arthroplasty, as described above. ACT 112: Negative or not required by law. Electronically signed by: Michi Shepherd M.D. 11/15/2021 10:02 PM Ordered Studies 11/15/21 19:56 CT femur LT wo con Stat Hospital Course (1) Closed left femoral fracture: (2) Fall: (3) HLD (hyperlipidemia): (4) HTN (hypertension): Plan Patient is an 86 yr female who presents with fall and left hip fracture. Mechanical fall Left acute displaced periprosthetic fracture adjacent to the femoral component of the left hip arthroplasty: --Left Femur CT:Acute displaced periprosthetic fracture adjacent to the femoral component of the left hip arthroplasty, as described above. --Hip/Pelvic X ray:Acute periprosthetic fracture of the proximal left femur with displacement of the lesser trochanter. -- The implant itself appears stable as per orthopedics Appreciate orthopedics input Patient does not require any surgery as per orthopedics Continue PT OT, mobilization Weightbearing as tolerated Fall precautions Needs follow-up with orthopedics in 2 weeks upon discharge Plan to be discharged to rehab facility Suspected Urinary Tract Infection--ruled out Noted to have foul-smelling urine with hematuria on 11/18. Urinalysis shows positive nitrate, high WBC and RBC count along with bacteria. Urine culture does not show any growth. Chronic Anemia: Noted to have a hemoglobin drop since the admission and has stable Hb 9.8 No signs of active bleeding. ? Related with Fracture Follow up with PCP as outpatient Hypertension Continue irbesartan . Hypothyroidism Continue Levothyroxine Hyperlipidemia Continue statin. Mild cognitive impairment Continue donepezil DVT Px: Lovenox SQ Disposition SNF Total Time Total Time Spent Total Time Spent (In Minutes): 45 minutes Discharge Plan Discharge Items Patient Disposition: Transfer [facility] Reason For Visit: FALL Discharge Diagnosis: Left Periprosthetic femur fracture - Lesser trochanter avulsion Mechanical Fall Activity: Per Instructions section Activity Comment: Resume activity as tolerated. Weightbearing: Full weightbearing Weightbearing Comment: May fullyl weightbear as tolerated Non-emergency contact: Primary Care Provider and Surgeon Call non-emergency contact if: you have any medication questions, your symptoms worsen, your pain is concerning for you and you have a fever Follow-up/Referrals: Lisa Adam MD [Primary Care Provider] - Phillip Michel MD [Physician] - (Orthopedic follow-up 2-3 weeks from injury date.) Diet: Regular Addtl Attending Provider Instructions: Follow-up with your primary care physician Dr. Zimmer in 1 week upon discharge from rehab facility Follow-up with your orthopedic surgeon Dr. Michel in 2 weeks as advised --- You can weight-bear on your left lower extremity as tolerated. Seek immediate medical attention if your symptoms reoccur or worsen Please take all medications as instructed on discharge list below. Please call if you have any questions or problems. You can reach a [facility] hospitalist on duty at [facility] 24 hours a day by calling [phone] Pending Studies at Discharge: No Stand-Alone Forms: My [facility] [address] Skilled Items Patient informed of condition?: Yes DNR: No Discharge Level of Care: Skilled Communicable Disease: No Discharge Prognosis: Stable Lines: None Urinary Catheter: No Medications and DC Order Prescriptions: New acetaminophen 325 mg Tablet 500 mg PO Q8H PRNQty: 0 0RF diclofenac sodium [Voltaren Arthritis Pain] 1 % Gel 2 g EXT Q12 PRN (Reason: pain) Qty: 100 0RF Continued donepezil 5 mg tablet 5 mg PO HS pravastatin 40 mg tablet 40 mg PO DAILY levothyroxine 50 mcg tablet 50 mcg PO DAILY irbesartan 150 mg tablet 150 mg PO HS Discharge Orders: Discharge Order (Routine); Ordered 11/21/21 Ordered By: Alec Dallas Admission Data Admit Date/Time: 11/15/21 22:14 Attending Provider: Alec Dallas Admit Provider: Keegan Up Primary Care Provider: Lisa Adam Other Providers: Phillip Michel ; Keegan Up ; [facility] ; [place] ; [facility]
== END 2021-11-21 10:43 | DRG 536 ==
LOC: ED 18:55 → 3N 22:14 → SUATTDRO 22:14 → 3N 23:15
DX: E03.9 Hypothyroidism, unspecified; N39.0 Urinary tract infection, site not specified; M97.02XA Periprosthetic fracture around internal prosthetic left hip joint, initial encounter; I10 Essential (primary) hypertension; E78.5 Hyperlipidemia, unspecified; D64.9 Anemia, unspecified; G31.84 Mild cognitive impairment of uncertain or unknown etiology; W06.XXXA Fall from bed, initial encounter; S72.122A Displaced fracture of lesser trochanter of left femur, initial encounter for closed fracture; Y92.013 Bedroom of single-family (private) house as the place of occurrence of the external cause

== ENCOUNTER 2023-09-26 06:55 | Inpatient (IN) ==
--- NOTE | 2023-09-26 07:21 | Emergency Department Note ---
ED Provider Note History of Present Illness Chief Complaint: Fall Stated Complaint: FALL, L HIP PAIN Time Seen by Provider: 09/26/23 07:05 88-year-old female who was brought to the emergency department by EMS for evaluation of a fall at home. The patient lives with her daughter. The daughter was not present at the time of my initial evaluation of the patient. Per EMS, the patient reportedly fell in her bedroom. The fall was not witnessed, however the daughter did hear her fall. Patient does have a dementia, and when asking what happened that caused her fall, she reports that she slipped. She cannot recall what she was doing at the time, but thought she may have been going to her closet to find a shirt. When asked if the patient has any pain, she initially denies. Per EMS, the patient does have a prior history of bilateral hip replacements. Once the the daughter did arrive at the emergency department, I interviewed her as well. She reported that she was in the living room at the time when the patient fell. When she got back, the patient was lying on the floor, and was unable to get up on her own. The daughter was also unable to assist the patient in getting up, therefore she called 911. Home Medications Medication Instructions Recorded Confirmed Type levothyroxine 50 mcg tablet 50 mcg PO DAILY 11/15/21 09/26/23 History pravastatin 40 mg tablet 40 mg PO DAILY 11/15/21 09/26/23 History irbesartan 75 mg tablet 75 mg PO DAILY 09/26/23 09/26/23 History Allergies Allergy/AdvReac Type Severity Reaction Status Date / Time No Known Allergies AdvReac Unknown Unverified 09/26/23 08:01 Past Med/Surg History Problem List Suicide risk Fall from slip, trip, or stumble (Acute) Periprosthetic fracture around internal prosthetic right hip joint, initial encounter (Acute) Closed left femoral fracture (Acute) Fall (Acute) Medical History Hypothyroidism (acquired) HLD (hyperlipidemia) HTN (hypertension) Surgical History History of bilateral hip replacements Social History Smoking Status: Unknown if ever smoked Hx Alcohol Use: No Hx Substance Use: No Preferred Language: Canadian Communication Ability: Effective Scissors Sharpener Required: No Beliefs That Will Affect Care: None Current Living Situation: Family Current Living Situation Comment: Lives with daughter Other Information That Helps Us Care for You: Yes (Decline in mental status over the past two years.) Feels Safe at Home: Yes Safety Concerns: Feels Safe At This Time Assistive Devices: Cane Physical Exam Vital Signs Vital Signs - 24 hr 09/26/23 06:45 09/26/23 07:01 09/26/23 07:05 Temperature 36.6 C Temperature Source Oral Pulse Rate 66 59 L Pulse Rate from SpO2 Sensor 60 Pulse Rhythm Regular Pulse Strength Normal Respiratory Rate 16 16 Respiratory Effort / Characteristics Non-Labored Spontaneous Respiratory Depth Normal Respiratory Pattern Regular Blood Pressure 167/73 H 167/73 H Blood Pressure Mean 104 93 Blood Pressure Position Sitting Pulse Oximetry 94 99 Oxygen Delivery Method Room Air Sepsis Recent Fever Within 48 Hours No Sepsis New/Unexplained Change in Mental Status No Sepsis Action Taken by Nursing No Action Required 09/26/23 07:15 09/26/23 07:41 09/26/23 08:08 Temperature Temperature Source Pulse Rate 62 59 L 57 L Pulse Rate from SpO2 Sensor 61 57 L Pulse Rhythm Regular Pulse Strength Respiratory Rate 16 15 20 Respiratory Effort / Characteristics Respiratory Depth Respiratory Pattern Blood Pressure Blood Pressure Mean Blood Pressure Position Pulse Oximetry 97 98 96 Oxygen Delivery Method Room Air Sepsis Recent Fever Within 48 Hours Sepsis New/Unexplained Change in Mental Status Sepsis Action Taken by Nursing 09/26/23 08:22 09/26/23 08:30 09/26/23 08:30 Temperature Temperature Source Pulse Rate 65 60 Pulse Rate from SpO2 Sensor 59 L Pulse Rhythm Pulse Strength Respiratory Rate 12 Respiratory Effort / Characteristics Respiratory Depth Respiratory Pattern Blood Pressure 95/49 L 141/70 H Blood Pressure Mean 64 93 Blood Pressure Position Pulse Oximetry 98 Oxygen Delivery Method Sepsis Recent Fever Within 48 Hours Sepsis New/Unexplained Change in Mental Status Sepsis Action Taken by Nursing 09/26/23 08:33 09/26/23 08:33 09/26/23 08:33 Temperature Temperature Source Pulse Rate 61 Pulse Rate from SpO2 Sensor 61 Pulse Rhythm Pulse Strength Respiratory Rate 22 Respiratory Effort / Characteristics Respiratory Depth Respiratory Pattern Blood Pressure 141/70 H 141/70 H Blood Pressure Mean 100 100 Blood Pressure Position Pulse Oximetry 97 Oxygen Delivery Method Sepsis Recent Fever Within 48 Hours Sepsis New/Unexplained Change in Mental Status Sepsis Action Taken by Nursing 09/26/23 09:00 09/26/23 09:01 09/26/23 09:09 Temperature Temperature Source Pulse Rate 62 63 Pulse Rate from SpO2 Sensor 62 63 Pulse Rhythm Pulse Strength Respiratory Rate 20 14 Respiratory Effort / Characteristics Respiratory Depth Respiratory Pattern Blood Pressure 139/64 Blood Pressure Mean 74 Blood Pressure Position Pulse Oximetry 99 98 Oxygen Delivery Method Sepsis Recent Fever Within 48 Hours Sepsis New/Unexplained Change in Mental Status Sepsis Action Taken by Nursing CONSTITUTIONAL: Healthy and well nourished. Patient is alert to place and situation, otherwise is not alert to time. HEENT: Normocephalic, atraumatic. Pupils equal, round and reactive. No epistaxis, subconjunctival hemorrhage, hemotympanum, raccoon's eyes or Doan sign. NECK: Patient is exhibiting active range of motion without discomfort. RESPIRATORY: Clear to auscultation bilaterally with no wheezing, crackles, rhonchi or stridor. CARDIOVASCULAR: Regular rate and rhythm with no murmurs, rubs or gallops. GASTROINTESTINAL: Bowel sounds present in all quadrants. Abdomen soft and nontender to palpation. MUSCULOSKELETAL: Examination shows discomfort with flexion and logroll of the right hip. Pelvis is stable with rock. No ecchymosis is noted of the right lower extremity. No tenderness to palpation about the knee, leg or ankle. No additional tenderness to palpation through the central thoracolumbar spine or ribs. The patient exhibits full range of motion of the upper extremities without discomfort. Distal pulses are intact. INTEGUMENTARY: No rash or other significant dermatologic conditions noted. HEMATOLOGIC: No ecchymosis or petechiae. PSYCHIATRIC: Positive affect. NEUROLOGIC: Upper and lower extremities are sensory intact. Course Course Patient history and physical exam were performed. Nurses notes reviewed. Vital signs were reviewed, showing an elevated blood pressure. IV access was established, and labs were drawn. An ECG was performed and was normal. The patient was placed on cardiac technician while in the emergency department. Review of labs did not show any concerning findings. Noncontrast CT of the head and cervical spine were normal. X-rays of the pelvis and right hip shows a periprosthetic fracture without joint dislocation. Findings were discussed with the patient and daughter. I then reached out to Dr. Walsh ([facility]) as the patient has seen Dr. Michel in the past. Dr. Walsh's physician child and youth program assistant did come through the emergency department, reviewed x-rays, and indicated that she would discuss the case with Dr. Michel when she gets back to the office. She expects that this will be a nonsurgical management. I then discussed the case further with our Manager Licensing, as well as the [facility] hospitalist service. It is noted that the daughter is interested in shelter placement for the patient. Please see orthopedics and hospitalist dictations for further treatment and final disposition. The case was also discussed with Dr. Leon, ED attending physician, who agrees with workup and admission. Administered Medications Acetaminophen (Acetaminophen 500 Mg Tab) 1,000 mg PO Q8H [facility] Stop: 10/26/23 13:14 Last Admin: 09/26/23 13:47 Dose: 1,000 mg Documented By: CEF Enoxaparin Sodium (Enoxaparin Inj 40 Mg/0.4 Ml Syr) 40 mg SQ Q24H [facility] Stop: 10/26/23 12:32 Last Admin: 09/26/23 13:52 Dose: 40 mg Documented By: CEF Levothyroxine Sodium (Levothyroxine Sodium 50 Mcg Tablet) [facility]: 10/26/23 12:32 Last Admin: 09/26/23 13:48 Dose: 50 mcg Documented By: CEF Losartan Potassium (Losartan Potassium 25 Mg Tab) 25 mg PO DAILY [facility]; Protocol Stop: 10/26/23 13:14 Last Admin: 09/26/23 13:48 Dose: 25 mg Documented By: CEF Pravastatin Sodium (Pravastatin Sod 40 Mg Tab) 40 mg PO DAILY [facility] Stop: 10/26/23 12:32 Last Admin: 09/26/23 13:48 Dose: 40 mg Documented By: CEF Medical Decision Making Medical Records Attestation: I reviewed the patient's medical records. Home Medications was personally reviewed by me Laboratory Data Attestation: I reviewed the patient's lab results. 09/26/23 07:24 09/26/23 07:24 Lab Results 09/26/23 Range/Units 07:24 WBC 8.46 (4.8-10.8) K/ul RBC 4.15 L (4.20-5.40) M/uL Hgb 12.9 (12.0-16.0) g/dl Hct 37.5 (37.0-47.0) % MCV 90.4 (80.0-100.0) fL MCH 31.1 (25.0-34.0) pg MCHC 34.4 (32.0-36.0) g/dL RDW Std Deviation 40.2 (36.4-46.3) fL RDW Coeff of Robert 12.1 (11.5-14.5) % Plt Count 216 (130-400) K/uL MPV 10.5 (9.4-12.4) fL Immature Gran % (Auto) 0.4 % Neut % (Auto) 80.6 % Lymph % (Auto) 13.1 % Andrews % (Auto) 5.0 % Eos % (Auto) 0.4 % Baso % (Auto) 0.5 % Neut # (Auto) 6.83 H (1.40-6.50) K/uL Lymph # (Auto) 1.11 L (1.20-3.40) K/uL Andrews # (Auto) 0.42 (0.11-0.59) K/uL Eos # (Auto) 0.03 (0.00-0.50) K/uL Baso # (Auto) 0.04 (0.00-0.20) K/uL Immature Gran # (Auto) 0.03 (0.01-0.20) K/uL PT 10.9 (9.0-12.0) Seconds INR 1.0 (0.9-1.1) Sodium 138 (136-145) mmol/L Potassium 4.3 (3.5-5.1) mmol/L Chloride 107 (98-107) mmol/L Carbon Dioxide 26 (21-32) mmol/L Anion Gap 5 (3-11) BUN 14 (6-23) mg/dl Creatinine 0.71 (0.6-1.2) mg/dl Est Cr Clr Drug Dosing 43.9 ml/min Est GFR ( Amer) 87.5 ml/min Est GFR (Non-Af Amer) 75.5 ml/min BUN/Creatinine Ratio 19.7 (10-20) Glucose 100 H (70-99(Fasting)) mg/dl Calcium 9.0 (8.6-10.3) mg/dl Magnesium 2.0 (1.7-2.4) mg/dl Total Bilirubin 0.8 (0.2-1.0) mg/dl AST 19 (13-39) U/L ALT 7 (7-52) U/L Alkaline Phosphatase 41 (34-104) U/L Total Creatine Kinase 70 (26-192) U/L Troponin I High Sens 4.0 (0-14) pg/ml Total Protein 6.8 (6.0-8.3) gm/dl Albumin 4.2 (3.4-5.0) gm/dl Globulin 2.6 (2.5-4.0) gm/dl Albumin/Globulin Ratio 1.6 (0.9-2) TSH 1.459 (0.300-4.500) uIu/ml Imaging Data Attestation: I personally reviewed and interpreted this imaging study as follows: My Impression: My interpretation of a portable chest x-ray does not show any pneumothorax, pneumonia or cardiomegaly. My interpretation of a noncontrast CT of the head does not show evidence for skull fracture, intracranial bleed, midline shift or mass effect. My interpretation of a noncontrast CT of the cervical spine My interpretation of a right hip with pelvic view shows a periprosthetic fracture without joint dislocation or other pelvic fractures. Radiologist reports were also reviewed with concurrence. Radiologist's Impression: Cervical Spine CT 09/26/23 07:15 CT OF THE CERVICAL SPINE WITHOUT CONTRAST CLINICAL HISTORY: s/p fall COMPARISON STUDY: CTA of the neck April 15, 2021. TECHNIQUE: Helical axial images of the cervical spine were obtained without IV contrast. Sagittal and coronal reconstructions were viewed. Automated exposure control was utilized for the study. A dose lowering technique was utilized adhering to the principles of ALARA. FINDINGS: Mild anterolisthesis of C3 on C4 and C4 on C5 is unchanged. Slight anterolisthesis of C7 on T1 is also unchanged. Vertebral body heights are maintained. No acute cervical spine fracture or subluxation is present. There is no prevertebral edema. Facet joints are intact. There is moderate to severe multilevel degenerative disc disease and facet arthrosis within the cervical spine. IMPRESSION: No acute cervical spine fracture or subluxation. ACT 112: Negative or not required by law. Electronically signed by: Michi Shepherd M.D. 09/26/2023 8:07 AM Chest X-Ray 09/26/23 07:15 XR chest 1V portable CLINICAL HISTORY: s/p fall COMPARISON STUDY: Chest radiograph November 15, 2021. FINDINGS: Lung volumes are normal. Lungs are clear. Asymmetric opacity projecting over the right lower lung is likely related to overlying tissues. There is no pneumothorax or pleural effusion. Cardiac size is normal. Mediastinal contours are normal. There is no evidence for pulmonary edema. IMPRESSION: No acute cardiopulmonary findings. ACT 112: Negative or not required by law. Electronically signed by: Michi Shepherd M.D. 09/26/2023 8:[address] 09/26/23 07:15 CT SCAN OF THE BRAIN WITHOUT IV CONTRAST CLINICAL HISTORY: Fall. COMPARISON STUDY: No priors. TECHNIQUE: Unenhanced axial CT scan of the brain is performed from the vertex to the skull base. A dose lowering technique was utilized adhering to the principles of ALARA. CT DOSE: 950.2 mGy.cm FINDINGS: Brain parenchyma: There is age-related involutional change noting moderate to advanced subcortical and periventricular microangiopathic disease. There is no hemorrhage, mass effect, or evidence of acute territorial ischemia by CT criteria. Plascencia-white matter differentiation is preserved. No extra-axial fluid collection is seen. Ventricles, sulci, cisterns: Prominent secondary to involutional change. Intracranial vasculature: There is atherosclerotic calcification of the cavernous carotid and vertebral arteries. Calvarium: Unremarkable. Sinuses and mastoids: The visualized paranasal sinuses are clear. The mastoid air cells are well pneumatized. Orbits: The bony orbits are grossly intact. There are bilateral ocular lens implants. IMPRESSION: There is no hemorrhage, mass effect, or evidence of acute territorial ischemia by CT criteria. ACT 112: Negative or not required by law. Electronically signed by: Sae Lawrence M.D. 09/26/2023 8:04 AM Hip/Pelvis X-Ray 09/26/23 07:15 SINGLE VIEW PELVIS; 2 VIEWS RIGHT HIP CLINICAL HISTORY: Fall with right hip injury. FINDINGS: AP portable views of the pelvis with AP and frog-leg views of the right hip are compared to study dated 11/15/2021. The skeletal structures are osteopenic. Bilateral hip arthroplasties are in near anatomic alignment. There is an acute comminuted periprosthetic fracture of the right proximal femur. This involves the greater trochanter and the lateral cortex of the intertrochanteric region. Overlying soft tissue edema is noted. No additional acute fracture is identified involving the left hip or the bony pelvis. There is persistent medial displacement of the lesser trochanter of the left femur. Degenerative sclerosis is noted in sacroiliac joints. Phleboliths are seen in the pelvis. There is advanced atherosclerotic calcification of the femoral arteries. IMPRESSION: 1. Acute comminuted periprosthetic fracture of the right proximal femur as above. 2. No additional acute fracture is seen involving the left hip or the bony pelvis. 3. Bilateral hip arthroplasties are in near anatomic alignment. Electronically signed by: Sae Lawrence M.D. 09/26/2023 8:45 AM ECG Data Attestation: I personally reviewed and interpreted this ECG as follows: Indication: + other (Status post unwitnessed fall) Rate (beats per minute): 61 Rhythm: + normal sinus ECG Intervals/blocks: + Normal QRS, + Normal QT and + Normal CO ECG [place]: + Normal ECG ST segments: + Normal ST segments Comparison ECG Date: no prior available MDM Narrative Cardiac monitoring: An order was placed for continuous cardiac monitoring. The monitor shows a rate of 61 bpm with a normal sinus rhythm. senior microsoft consultant history was reviewed throughout the evaluation, and no dysrhythmias were noted. See ED Course section for further details of today's visit. The patient likely suffered a mechanical fall at home, reporting that she slipped on the floor in her bedroom. It is noted that the patient had a similar fall 2 years ago, resulting in a LEFT hip periprosthetic fracture. Today's workup shows a RIGHT hip periprosthetic fracture that is likely nonsurgical. The patient will be further evaluated by orthopedics, and was admitted by the hospitalist service for likely placement. Additional workup was completed, and not suggestive of any acute cardiopulmonary etiologies. The patient's lab work also is not concerning, with no electrolyte abnormalities, anemia, abnormal thyroid state or leukocytosis suggesting infectious etiology. Further imaging today also does not show any other concerning injuries, including intracranial bleed, cervical spine fracture/subluxation or pneumothorax. The patient's physical examination is otherwise unremarkable. The case was also discussed with Dr. Leon, ED attending physician, who agrees with workup and admission. Impression Periprosthetic fracture around internal prosthetic right hip joint, initial encounter, Fall from slip, trip, or stumble Discharge Plan Visit Data Chief Complaint: Fall Stated Complaint: FALL, L HIP PAIN ED Provider: Luan Leon ED Midlevel Provider: Iron Ramon Discharge Problem: Periprosthetic fracture around internal prosthetic right hip joint, initial encounter, Fall from slip, trip, or stumble Discharge Instructions Interventions: ED Discharge Assessment Last Done: 09/26/23 12:34 Discharge Problem: Fall from slip, trip, or stumble Qualifiers: Encounter type: initial encounter Qualified Code(s): W01.0XXA - Fall on same level from slipping, tripping and stumbling without subsequent striking against object, initial encounter
[2023-09-26 07:37] LABS: Basophils # (auto) 0.04 K/uL (0.00-0.20); Basophils % (auto) 0.5 %; Eosinophils # (auto) 0.03 K/uL (0.00-0.50); Eosinophils % (auto) 0.4 %; Hematocrit (blood only) 37.5 % (37.0-47.0); Hemoglobin 12.9 g/dl (12.0-16.0); Immature Granulocytes # (auto) 0.03 K/uL (0.01-0.20); Immature Granulocytes % (auto) 0.4 %; Lymphocytes # (auto) 1.11 K/uL (1.20-3.40); Lymphocytes % (auto) 13.1 %; Mean Corpuscular Hemoglobin 31.1 pg (25.0-34.0); Mean Corpuscular Hgb Conc 34.4 g/dL (32.0-36.0); Mean Corpuscular Volume 90.4 fL (80.0-100.0); Mean Platelet Volume 10.5 fL (9.4-12.4); Monocytes # (auto) 0.42 K/uL (0.11-0.59); Neutrophils # (auto) 6.83 K/uL (1.40-6.50); Neutrophils % (auto) 80.6 %; Platelet Count 216 K/uL (130-400); RDW Coefficient of Variation 12.1 % (11.5-14.5); RDW Standard Deviation 40.2 fL (36.4-46.3); Red Blood Count 4.15 M/uL (4.20-5.40); White Blood Count 8.46 K/ul (4.8-10.8)
[2023-09-26 08:02] LABS: Prothrombin Time 10.9 Seconds (9.0-12.0)
--- NOTE | 2023-09-26 08:06 | CT Scan Report ---
CT SCAN OF THE BRAIN WITHOUT IV CONTRAST CLINICAL HISTORY: Fall. COMPARISON STUDY: No priors. TECHNIQUE: Unenhanced axial CT scan of the brain is performed from the vertex to the skull base. A do se lowering technique was utilized adhering to the principles of ALARA. CT DOSE: 950.2 mGy.cm FINDINGS: Brain parenchyma: There is age-related involutional change noting moderate to advanced subcortical an d periventricular microangiopathic disease. There is no hemorrhage, mass effect, or evidence of acute territorial ischemia by CT criteria. Plascencia-white matter differentiation is preserved. No extra-axial fluid collection is seen. Ventricles, sulci, cisterns: Prominent secondary to involutional change. Intracranial vasculature: There is atherosclerotic calcification of the cavernous carotid and vertebr al arteries. Calvarium: Unremarkable. Sinuses and mastoids: The visualized paranasal sinuses are clear. The mastoid air cells are well pneu matized. Orbits: The bony orbits are grossly intact. There are bilateral ocular lens implants. IMPRESSION: There is no hemorrhage, mass effect, or evidence of acute territorial ischemia by CT antonio flores. ACT 112: Negative or not required by law. Electronically signed by: Sae Lawrence M.D. 09/26/2023 8:04 AM
[2023-09-26 08:07] LABS: Albumin Globulin Ratio 1.6 (0.9-2); Albumin Level 4.2 gm/dl (3.4-5.0); BUN Creatinine Ratio 19.7 (10-20); Bilirubin,Total 0.8 mg/dl (0.2-1.0); Creatinine Clr Calc Pharmacy 43.9 ml/min; Est GFR (African American) 87.5 ml/min; Est GFR (Non-African American) 75.5 ml/min; Globulin 2.6 gm/dl (2.5-4.0); Total Protein 6.8 gm/dl (6.0-8.3)
[2023-09-26 08:08] LABS: Potassium 4.3 mmol/L (3.5-5.1)
--- NOTE | 2023-09-26 08:08 | CT Scan Report ---
CT OF THE CERVICAL SPINE WITHOUT CONTRAST CLINICAL HISTORY: s/p fall COMPARISON STUDY: CTA of the neck April 15, 2021. TECHNIQUE: Helical axial images of the cervical spine were obtained without IV contrast. Sagittal a nd coronal reconstructions were viewed. Automated exposure control was utilized for the study. A do se lowering technique was utilized adhering to the principles of ALARA. FINDINGS: Mild anterolisthesis of C3 on C4 and C4 on C5 is unchanged. Slight anterolisthesis of C7 on T1 is also unchanged. Vertebral body heights are maintained. No acute cervical spine fracture or sub luxation is present. There is no prevertebral edema. Facet joints are intact. There is moderate to s evere multilevel degenerative disc disease and facet arthrosis within the cervical spine. IMPRESSION: No acute cervical spine fracture or subluxation. ACT 112: Negative or not required by law. Electronically signed by: Michi Shepherd M.D. 09/26/2023 8:07 AM
[2023-09-26 08:11] LABS: Thyroid Stimulating Hormone 1.459 uIu/ml (0.300-4.500)
--- NOTE | 2023-09-26 08:47 | XRay Report ---
SINGLE VIEW PELVIS; 2 VIEWS RIGHT HIP CLINICAL HISTORY: Fall with right hip injury. FINDINGS: AP portable views of the pelvis with AP and frog-leg views of the right hip are compared to study dated 11/15/2021. The skeletal structures are osteopenic. Bilateral hip arthroplasties are in n ear anatomic alignment. There is an acute comminuted periprosthetic fracture of the right proximal fe mur. This involves the greater trochanter and the lateral cortex of the intertrochanteric region. Ove rlying soft tissue edema is noted. No additional acute fracture is identified involving the left hip or the bony pelvis. There is persistent medial displacement of the lesser trochanter of the left femu r. Degenerative sclerosis is noted in sacroiliac joints. Phleboliths are seen in the pelvis. There is advanced atherosclerotic calcification of the femoral arteries. IMPRESSION: 1. Acute comminuted periprosthetic fracture of the right proximal femur as above. 2. No additional acute fracture is seen involving the left hip or the bony pelvis. 3. Bilateral hip arthroplasties are in near anatomic alignment. Electronically signed by: Sae Lawrence M.D. 09/26/2023 8:45 AM
--- NOTE | 2023-09-26 08:54 | XRay Report ---
XR chest 1V portable CLINICAL HISTORY: s/p fall COMPARISON STUDY: Chest radiograph November 15, 2021. FINDINGS: Lung volumes are normal. Lungs are clear. Asymmetric opacity projecting over the right lowe r lung is likely related to overlying tissues. There is no pneumothorax or pleural effusion. Cardiac size is normal. Mediastinal contours are normal. There is no evidence for pulmonary edema. IMPRESSION: No acute cardiopulmonary findings. ACT 112: Negative or not required by law. Electronically signed by: Michi Shepherd M.D. 09/26/2023 8:52 AM
--- NOTE | 2023-09-26 09:32 | Emergency Department Note ---
ED Visit Note I was consulted by the Advanced Practice Provider. I personally made/approved the management plan and take responsibility for the patient management. I performed a substantive portion of the visit. This patient does have some dementia she fell. CAT scan of her head and neck were unremarkable. There is a possible fracture of the right hip around the prosthetic joint on my exam the the hip is not shortened or deformed. She does not have any significant tenderness in the hip at this point. She has no abdominal pain when I push on her abdomen. She denies chest pain or shortness of breath. She will be admitted/observed for further inpatient treatment evaluation for her fall and possible placement as well. I did talk to the daughter at length he was at the bedside .
--- NOTE | 2023-09-26 10:05 | Electrocardiogram Report ---
Test Reason : Blood Pressure : */* mmHG Vent. Rate : 61 BPM Atrial Rate : 61 BPM P-R Int : 134 ms QRS Dur : 82 ms QT Int : 436 ms P-R-T Axes : 28 37 56 degrees QTcB Int : 438 ms Normal sinus rhythm When compared with ECG of 15-Nov-2021 19:37, No significant change was found Confirmed by Jose Colby ([id number] on 09/26/2023 10:04:59 AM Referred By: Confirmed By: Jose Colby
--- NOTE | 2023-09-26 10:37 | Orthopedic Consultation ---
Date of Service September 26, 2023 Assessment & Plan (1) Periprosthetic fracture around internal prosthetic right hip joint, initial encounter: - Discussed case with Dr. Walsh. NPO status may be removed at this time as no surgical intervention indicated at this time and the patient's daughter does not feel surgery is her best option either. We agree with this due to her dementia. - She may WBAT RLE with no active hip abduction. - Agree with admission for assistance with ambulation as well as possible placem ent for additional assistance. - Follow-up with Dr. Michel in 2 weeks time for repeat x-ray as an outpatient. - Please reach out to ortho with any other questions or concerns. History of Present Illness Reason for Consultation: right hip periprosthetic fracture Requesting Physician: . Sarah is an 88-year-old female who is being consulted today due to a fall and a right periprosthetic hip fracture found on x-ray in the emergency department. Her daughter is with her at today's visit. The patient is pleasantly confused and has baseline dementia. She lives with her daughter in their trailer. The daughter states that Sarah ambulates independently with a cane and that she is a fairly healthy 88-year-old female. She states that her mother's main problem is her dementia. They do state that she had a fall early this morning around 4 AM. The fall was unwitnessed but she did have right hip pain at that time and ambulatory dysfunction. They reported the emergency department for evaluation of the fall. No other questions or concerns from the family or the patient today. To note, the patient did have her right hip replacement done 10-15 years ago by a [facility] or [facility] provider. She did also have a left periprosthetic fracture around her left hip replacement implant 2 years ago. This was treated conservatively by Dr. Michel. Allergies Allergy/AdvReac Type Severity Reaction Status Date / Time No Known Allergies AdvReac Unknown Unverified 09/26/23 08:01 Home Medications Medication Instructions Recorded Confirmed Type levothyroxine 50 mcg tablet 50 mcg PO DAILY 11/15/21 09/26/23 History pravastatin 40 mg tablet 40 mg PO DAILY 11/15/21 09/26/23 History irbesartan 75 mg tablet 75 mg PO DAILY 09/26/23 09/26/23 History Past Med/Surg History Problem List (Updated 09/27/23 @ 11:08 by Harris Munoz DO) Delirium due to another medical condition Vascular dementia with behavior disturbance Suicide risk Fall from slip, trip, or stumble (Acute) Periprosthetic fracture around internal prosthetic right hip joint, initial encounter (Acute) Closed left femoral fracture (Acute) Fall (Acute) Medical History Hypothyroidism (acquired) HLD (hyperlipidemia) HTN (hypertension) Surgical History History of bilateral hip replacements Social History Smoking Status: Unknown if ever smoked Hx Alcohol Use: No Hx Substance Use: No Preferred Language: Albanian Communication Ability: Effective 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 Physical Exam General: Patient is confused at today's visit. She is unable to provide a history today. History was provided by patient's family. She is resting in her hospital bed. Cardiovascular Vascularity grossly intact. Musculoskeletal Right lower extremity: Inspection of the right hip does not reveal any open wounds, erythema, edema or deformity. She is quite tender along the lateral hip. Positive logroll. Was quite careful with range of motion due to the fracture in her right hip. Does not seem to have any shortening of the right lower extremity. She has good range of motion of her ankle and foot. Sensation intact. Distal pulses palpated. Cap refill less than 3 seconds. Psychiatric Orientation: alert Baseline dementia Results & Data Results & Data Laboratory Results Laboratory Results - last 24 hr 09/26/23 07:24 WBC 8.46 RBC 4.15 L Hgb 12.9 Hct 37.5 MCV 90.4 MCH 31.1 MCHC 34.4 RDW Std Deviation 40.2 RDW Coeff of Robert 12.1 Plt Count 216 MPV 10.5 Immature Gran % (Auto) 0.4 Neut % (Auto) 80.6 Lymph % (Auto) 13.1 Gooding % (Auto) 5.0 Eos % (Auto) 0.4 Baso % (Auto) 0.5 Neut # (Auto) 6.83 H Lymph # (Auto) 1.11 L Gooding # (Auto) 0.42 Eos # (Auto) 0.03 Baso # (Auto) 0.04 Immature Gran # (Auto) 0.03 PT 10.9 INR 1.0 Sodium 138 Potassium 4.3 Chloride 107 Carbon Dioxide 26 Anion Gap 5 BUN 14 Creatinine 0.71 Est Cr Clr Drug Dosing 43.9 Est GFR ( Amer) 87.5 Est GFR (Non-Af Amer) 75.5 BUN/Creatinine Ratio 19.7 Glucose 100 H Calcium 9.0 Magnesium 2.0 Total Bilirubin 0.8 AST 19 ALT 7 Alkaline Phosphatase 41 Total Creatine Kinase 70 Troponin I High Sens 4.0 Total Protein 6.8 Albumin 4.2 Globulin 2.6 Albumin/Globulin Ratio 1.6 TSH 1.459 Diagnostic Findings Did personally review x-ray images of the right hip with AP pelvis on 09/26/2023. There is any acute periprosthetic fracture of the right proximal femur. No other abnormalities noted. PG Care Time/CCT Total # of Minutes Spent Total Time Spent with Patient: Total time spent is greater than 50% in coordination of care (as documented) at patient's floor/unit and/or counseling patient: Coding Level of Care Code 50504 OFFICE CONSULT LVL M Diagnoses Periprosthetic fracture around internal prosthetic right hip joint, initial encounter M97.01XA
--- NOTE | 2023-09-26 11:10 | History & Physical Report ---
Date of Service September 26, 2023 Assessment & Plan (1) Periprosthetic fracture around internal prosthetic right hip joint, initial encounter: Plan: Admit to [facility] Patient presenting from home after her daughter found her on the floor in her bedroom. In the ED, XR shows Acute comminuted periprosthetic fracture of the right proximal femur Head/Neck CT negative for acute findings Pain control with bowel regimen Ortho consulted - WBAT RLE with no active hip abduction. follow-up in office in 2 weeks PT/OT Will need placement, likely long-term (2) Suicide risk: Plan: Daughter states she received reports from 2 family members the patient expressed suicidal ideations, no details or plan reported. No self harming behaviors observed. One to one sitter for now Behavioral health liaison consulted (3) HTN (hypertension): Plan: chronic, stable Continue irbesartan (4) Hypothyroidism (acquired): Plan: chronic, stable Continue levothyroxine (5) HLD (hyperlipidemia): Plan: chronic, stable Continue statin DVT PROPHYLAXIS SQ Lovenox Patient seen in collaboration with Dr. Sanchez. I spent a total of 75 minutes coordinating, documenting, and providing care for this patient excluding time spent in the performance of separately billed services. This included personally reviewing all current laboratories and imaging studies, medication reconciliation, outpatient chart review, and discussion with specialists. History of Present Illness Chief Complaint: Fall, right hip pain Primary Care Provider: Lisa Adam MD 88-year-old female with PMH HTN, HLD, hypothyroidism, dementia, and other problems listed below who presents to the ED for evaluation of fall and right hip pain. History is mostly obtained from the daughter due to underlying dementia, outpatient PCP records were also reviewed. Daughter states that her mother has been living with her for about the past 2 years since she moved here from [place] due to declining mental status. Daughter states she has noticed a worsening in her mental status over the past 2 years. This morning, daughter heard a loud noise come from her mother's bedroom. When she entered, she found her on the ground and she was complaining of severe right hip pain. Patient was unable to get up from the floor. Patient does not remember the fall and cannot provide any details. EMS was called and patient was brought to the ED for further evaluation. Daughter states that it is getting more difficult to take care of her mother at home. She has been having troubles dressing herself and doing activities of daily living. Last week, patient went for a walk and when she returned she entered into the wrong home. Daughter states that she has very limited short-term memory. Daughter also reports that she has heard from other family members that the patient has been reporting suicidal ideations. No details or plan reported. No observed self harming behavior. In the ED, XR shows Acute comminuted periprosthetic fracture of the right proximal femur. Patient is hemodynamically stable, labs unremarkable. Allergies Allergy/AdvReac Type Severity Reaction Status Date / Time No Known Allergies AdvReac Unknown Unverified 09/26/23 08:01 Home Medications Medication Instructions Recorded Confirmed Type levothyroxine 50 mcg tablet 50 mcg PO DAILY 11/15/21 09/26/23 History pravastatin 40 mg tablet 40 mg PO DAILY 11/15/21 09/26/23 History irbesartan 75 mg tablet 75 mg PO DAILY 09/26/23 09/26/23 History Past Med/Surg History Problem List (Updated 09/27/23 @ 11:08 by Harirs Munoz DO) Delirium due to another medical condition Vascular dementia with behavior disturbance Suicide risk Fall from slip, trip, or stumble (Acute) Periprosthetic fracture around internal prosthetic right hip joint, initial encounter (Acute) Closed left femoral fracture (Acute) Fall (Acute) Medical History Hypothyroidism (acquired) HLD (hyperlipidemia) HTN (hypertension) Surgical History History of bilateral hip replacements Social History Smoking Status: Unknown if ever smoked Hx Alcohol Use: No Hx Substance Use: No Preferred Language: Maltese Communication Ability: Effective Radarman Required: No Beliefs That Will Affect Care: None Current Living Situation: Family Current Living Situation Comment: Lives with daughter Other Information That Helps Us Care for You: Yes (Decline in mental status over the past two years.) Feels Safe at Home: Yes Safety Concerns: Feels Safe At This Time Assistive Devices: Cane and Walker Review of Systems Review of Systems: Limited due to underlying dementia Physical Exam Constitutional: WD/WN, vitals as above no acute distress Eyes: PERRL, conjunctivae normal, anicteric sclerae ENMT: external ear and nose normal, oropharynx normal Respiratory: normal respiratory effort, lungs clear to auscultation Cardiovascular: Rate/Rhythm: regular rate and regular rhythm Vessels: normal peripheral pulses Extremities: no edema Gastrointestinal (Abdomen): normal bowel sounds, soft, nontender, no hepatosplenomegaly Musculoskeletal: no tenderness over right hip Skin: no rashes, warm and dry Neurologic: PERRL, EOMI, accommodation nl, no face palsy, no dysarthria Psychiatric: Orientation: alert, oriented to person and cooperative; + not oriented to place and + not oriented to time Insight: + limited insight Results & Data Results & Data Vital Signs (Past 12 Hours) Vital Signs Temp Pulse Resp BP Pulse Ox O2 Del Method 09/26/23 09:32 152/53 H 09/26/23 09:30 67 16 96 09/26/23 09:09 63 14 98 09/26/23 09:01 139/64 09/26/23 09:00 62 20 99 09/26/23 08:33 141/70 H 09/26/23 08:33 141/70 H 09/26/23 08:33 61 22 97 09/26/23 08:30 141/70 H 09/26/23 08:30 60 12 95/49 L 98 09/26/23 08:22 65 09/26/23 08:08 57 L 20 96 09/26/23 07:41 59 L 15 98 09/26/23 07:15 62 16 97 Room Air 09/26/23 07:05 59 L 16 99 09/26/23 07:01 167/73 H 09/26/23 06:45 36.6 C 66 16 167/73 H 94 Room Air Laboratory Results Short CBC 09/26/23 Range/Units 07:24 WBC 8.46 (4.8-10.8) K/ul Hgb 12.9 (12.0-16.0) g/dl Hct 37.5 (37.0-47.0) % Plt Count 216 (130-400) K/uL BMP 09/26/23 07:24 Sodium 138 Potassium 4.3 Chloride 107 Carbon Dioxide 26 BUN 14 Creatinine 0.71 Glucose 100 H Calcium 9.0 Cardiac Enzymes 09/26/23 Range/Units 07:24 Total Creatine Kinase 70 (26-192) U/L Liver Function 09/26/23 Range/Units 07:24 Total Bilirubin 0.8 (0.2-1.0) mg/dl AST 19 (13-39) U/L ALT 7 (7-52) U/L Alkaline Phosphatase 41 (34-104) U/L Albumin 4.2 (3.4-5.0) gm/dl Diagnostic Findings Cervical Spine CT 09/26/23 07:15 CT OF THE CERVICAL SPINE WITHOUT CONTRAST CLINICAL HISTORY: s/p fall COMPARISON STUDY: CTA of the neck April 15, 2021. TECHNIQUE: Helical axial images of the cervical spine were obtained without IV contrast. Sagittal and coronal reconstructions were viewed. Automated exposure control was utilized for the study. A dose lowering technique was utilized adhering to the principles of ALARA. FINDINGS: Mild anterolisthesis of C3 on C4 and C4 on C5 is unchanged. Slight anterolisthesis of C7 on T1 is also unchanged. Vertebral body heights are maintained. No acute cervical spine fracture or subluxation is present. There is no prevertebral edema. Facet joints are intact. There is moderate to severe multilevel degenerative disc disease and facet arthrosis within the cervical spine. IMPRESSION: No acute cervical spine fracture or subluxation. ACT 112: Negative or not required by law. Electronically signed by: Michi Shepherd M.D. 09/26/2023 8:07 AM Chest X-Ray 09/26/23 07:15 XR chest 1V portable CLINICAL HISTORY: s/p fall COMPARISON STUDY: Chest radiograph November 15, 2021. FINDINGS: Lung volumes are normal. Lungs are clear. Asymmetric opacity projecting over the right lower lung is likely related to overlying tissues. There is no pneumothorax or pleural effusion. Cardiac size is normal. Mediastinal contours are normal. There is no evidence for pulmonary edema. IMPRESSION: No acute cardiopulmonary findings. ACT 112: Negative or not required by law. Electronically signed by: Michi Shepherd M.D. 09/26/2023 8:[address] 09/26/23 07:15 CT SCAN OF THE BRAIN WITHOUT IV CONTRAST CLINICAL HISTORY: Fall. COMPARISON STUDY: No priors. TECHNIQUE: Unenhanced axial CT scan of the brain is performed from the vertex to the skull base. A dose lowering technique was utilized adhering to the principles of ALARA. CT DOSE: 950.2 mGy.cm FINDINGS: Brain parenchyma: There is age-related involutional change noting moderate to advanced subcortical and periventricular microangiopathic disease. There is no hemorrhage, mass effect, or evidence of acute territorial ischemia by CT criteria. Plascencia-white matter differentiation is preserved. No extra-axial fluid collection is seen. Ventricles, sulci, cisterns: Prominent secondary to involutional change. Intracranial vasculature: There is atherosclerotic calcification of the cavernous carotid and vertebral arteries. Calvarium: Unremarkable. Sinuses and mastoids: The visualized paranasal sinuses are clear. The mastoid air cells are well pneumatized. Orbits: The bony orbits are grossly intact. There are bilateral ocular lens implants. IMPRESSION: There is no hemorrhage, mass effect, or evidence of acute territorial ischemia by CT criteria. ACT 112: Negative or not required by law. Electronically signed by: Sae Lawrence M.D. 09/26/2023 8:04 AM Hip/Pelvis X-Ray 09/26/23 07:15 SINGLE VIEW PELVIS; 2 VIEWS RIGHT HIP CLINICAL HISTORY: Fall with right hip injury. FINDINGS: AP portable views of the pelvis with AP and frog-leg views of the right hip are compared to study dated 11/15/2021. The skeletal structures are osteopenic. Bilateral hip arthroplasties are in near anatomic alignment. There is an acute comminuted periprosthetic fracture of the right proximal femur. This involves the greater trochanter and the lateral cortex of the intertrochanteric region. Overlying soft tissue edema is noted. No additional acute fracture is identified involving the left hip or the bony pelvis. There is persistent medial displacement of the lesser trochanter of the left femur. Degenerative sclerosis is noted in sacroiliac joints. Phleboliths are seen in the pelvis. There is advanced atherosclerotic calcification of the femoral arteries. IMPRESSION: 1. Acute comminuted periprosthetic fracture of the right proximal femur as above. 2. No additional acute fracture is seen involving the left hip or the bony pelvis. 3. Bilateral hip arthroplasties are in near anatomic alignment. Electronically signed by: Sae Lawrence M.D. 09/26/2023 8:45 AM Code Status & VTE Plan VTE Prophylaxis Plan VTE Prophylaxis will be ordered: Yes Supervising Physician Co-Signing Physician Notes Attending Addendum: Case reviewed with the advanced practitioner. I have personally performed a history and physical examination on the patient. I have reviewed the advanced practitioner's documentation on the date of service referenced in note, and I agree with, and take responsibility for the plan of care. please refer to her notes for full details patient seen and examined, records reviewed by myself as well on exam, patient seen resting in bed, sleeping sitter at bedside, was having pain earlier no other symptoms noted VS noted and reviewed sleeping, not in distress,breathing with no effort nor accessory muscle use normal rate, regular rhythm, no murmurs clear breath sounds bilaterally non distended, soft, nontender no bipedal edema, erythema, warmth no neuro deficits all labs, imaging noted and reviewed ASSESSMENT AND PLAN> R FEMORAL FRACTURE, S/P FALL conservative management per Ortho pain, control PT/OT eval other diagnoses and plan of care as per advanced practitioner's notes Black Sanchez MD
[2023-09-26] MEDS ORDERED: ACETAMINOPHEN 325 MG TAB PO PRN (12:33)
[2023-09-26] MEDS ORDERED: traMADol HCL 50 MG TABLET PO PRN (12:33)
[2023-09-26] MEDS: ACETAMINOPHEN 500 MG TAB PO SCH (13:47)
[2023-09-26] MEDS: LOSARTAN POTASSIUM 25 MG TAB PO SCH (13:48)
[2023-09-26] MEDS: PRAVASTATIN SOD 40 MG TAB PO SCH (13:48)
[2023-09-26] MEDS: LEVOTHYROXINE SODIUM 50 MCG TABLET PO SCH (13:48)
[2023-09-26] MEDS: ENOXAPARIN INJ 40 MG/0.4 ML SYR SQ SCH (13:52)
[2023-09-26] MEDS: oxyCODONE HCL IR 5 MG TAB (IMMEDIATE RELEASE) PO PRN (18:33)
[2023-09-26] MEDS: OLANZapine 10 MG/2.1 ML SDV IM STA (21:48)
--- NOTE | 2023-09-27 11:09 | Hospitalist Progress Note ---
Date of Service September 27, 2023 Assessment & Plan (1) Periprosthetic fracture around internal prosthetic right hip joint, initial encounter: (2) Vascular dementia with behavior disturbance: (3) Delirium due to another medical condition: (4) HTN (hypertension): Plan Patient status post fall and Gelacio prosthetic fracture of the right hip. Dementia and delirium exacerbated by pain and change in routine and living condition. Reviewed orthopedic recommendations, no surgery Weight-bear as tolerated Therapies Pain control Behavioral control Voicemail left at Black, nithin, phone Admission and Anticipated Discharge Date Admission Date: September 26, 2023 Subjective Patient was restless, irritable and agitated overnight. Received Zyprexa. Now more comfortable and resting. Patient unable to really give any answers to direct questions Physical Exam Physical Exam: Constitutional: Alert, moderate distress suspect due to pain HEENT: Mucous membranes moist. Lungs: Clear to auscultation, decreased, no wheezes rales or rhonchi CV: S1-S2, regular Abdomen: Soft, nontender, nondistended Extremities: No significant edema, right lower extremity slightly shortened and internally rotated, pain right hip Neuro: Generalized weakness Psych: Confused, poor memory, delirious Results & Data Results & Data Vital Signs (Past 12 Hours) Vital Signs Temp Pulse Resp BP Pulse Ox O2 Del Method 09/27/23 09:11 166/73 H 09/27/23 08:53 36.6 C 70 19 97 Room Air 09/27/23 08:35 19 189/97 H Diagnostic Findings Reviewed imaging, laboratory and diagnostic studies. Pertinent findings as below.
[2023-09-27] MEDS ORDERED: OLANZapine 10 MG/2.1 ML SDV IM PRN (11:14)
[2023-09-27] MEDS: ACETAMINOPHEN 500 MG TAB PO SCH (13:58)
[2023-09-27 14:30] LABS: Appearance Urine Clear (Clear); Bilirubin Urine Negative (Negative); Blood Urine Negative (Negative); Color Urine Yellow; Glucose Urine UA Negative (Negative); Ketones Urine Trace (Negative); Leukocyte Esterase Urine Negative (Negative); Nitrite Urine Negative (Negative); Protein Urine Negative (Negative); Specific Gravity Urine 1.011 (1.000-1.030); Urobilinogen Urine Negative (Negative); pH Urine 6.5 (4.5-7.5)
[2023-09-27] MEDS: oxyCODONE HCL IR 5 MG TAB (IMMEDIATE RELEASE) PO PRN (20:42)
--- NOTE | 2023-09-28 09:20 | Hospitalist Progress Note ---
Date of Service September 28, 2023 Assessment & Plan (1) Periprosthetic fracture around internal prosthetic right hip joint, initial encounter: (2) Vascular dementia with behavior disturbance: (3) Delirium due to another medical condition: (4) HTN (hypertension): Plan Patient's status post fall with periprosthetic right hip fracture. Continue therapies weightbearing as tolerated Continue current pain control regimen Continue to pursue placement, Ready for discharge when bed available Admission and Anticipated Discharge Date Admission Date: September 26, 2023 Subjective Patient significantly improved from her delirium this morning. She reports that she slept very well. Nurses report no acute issues overnight. Patient states that her pain is well-controlled when she is sitting still. Tolerable when she moves Physical Exam Physical Exam: Constitutional: Alert HEENT: Mucous membranes moist. Lungs: Clear to auscultation, decreased, no wheezes rales or rhonchi CV: S1-S2, regular Abdomen: Soft, nontender, nondistended Extremities: No significant edema, right hip tenderness Neuro: No focal deficits Psych: Cooperative, normal mood, delirium significantly improved Results & Data Results & Data Vital Signs (Past 12 Hours) Vital Signs Temp Pulse Resp BP Pulse Ox O2 Del Method 09/28/23 07:44 36.7 C 69 16 139/76 96 Room Air Diagnostic Findings Reviewed imaging, laboratory and diagnostic studies. Pertinent findings as below. Urinalysis negative for signs of infection
[2023-09-29 15:15] VITALS: RESP 16
--- NOTE | 2023-09-29 16:41 | Hospitalist Progress Note ---
<Statement entered by Harris Munoz, - 09/30/23 08:08> I have seen and examined the patient and have discussed the case with the provider above on 09/29/2023. I have reviewed the advanced practitioner's documentation, and I agree with, and take responsibility for that plan of care. 8 minutes spent in coordinating care with BRENDAN. Patient overall doing well. Plan of care as outlined below Date of Service September 29, 2023 Assessment & Plan (1) Periprosthetic fracture around internal prosthetic right hip joint, initial encounter: (2) Suicide risk: (3) HTN (hypertension): (4) Hypothyroidism (acquired): (5) HLD (hyperlipidemia): Plan Sarah Arce is an 88-year-old female with PMHx significant for HTN, HLD, hypothyroidism and dementia who presented to the ED on 09/25 for evaluation of right hip pain s/p fall and was found to have a right periprosthetic hip fracture. Friday, 09/28: Patient with no acute behavioral concerns overnight. [facility] not able to offer the patient a bed, daughter updated. Referral was made to [facility] to hear back from regarding this. Periprosthetic Fracture of Right Hip Joint Patient presented from home after her daughter found her on the floor in her bedroom. In the ED, XR imaging showed an acute comminuted periprosthetic fracture of the right proximal femur. Head and cervical spine CT were both negative. Ortho was consulted and evaluated the patient on 09/25 - patient may WBAT RLE with no active hip abduction. Patient will need a follow-up appointment in 2 weeks as outpatient with Dr. Michel for repeat XR imaging. Will continue with PT/OT, pain control regimen in place. Ready for d/c when bed is available. Suicide Risk At time of admission, daughter mentioned she received reports from 2 family members that the patient expressed suicidal ideations, no details or plan reported. No self harming behaviors observed. Patient and her daughter met with a behavioral health liaison on 09/25. Per psychiatric liaison documentation on 09/25: "Unable to do Suicide Risk Assessment due to patients cognitive status. When speaking to daughter outside of room privately, she reports that approximately a week ago her mother had SI without a plan or intent. This was related to her present situation/frustration with not being able to do ADL's as she used to. She agrees that her mother would not try to attempt this. Patient shook her head no when asked if she would attempt to hurt herself. Daughter reports that patient has never made those statements in the past or since last week and has no history of mental illness/inpatient stays for psych." Hypertension Chronic, stable. Can continue [employer] irbesartan. Hyperlipidemia: Continue [employer] statin therapy. Acquired Hypothyroidism TSH WNL at time of admission, continue levothyroxine. DVT Prophylaxis: SQ Lovenox Code Status: DNR/DNI - No Resuscitation [per previous provider's review of patient's POLST form] PCP: Lisa Adam MD Disposition: Admitted in Med/Surg - awaiting placement at this time. Patient seen in collaboration with Dr. Munoz. Please see addendum. I spent a total of 30 minutes coordinating, documenting, and providing care for this patient excluding time spent in the performance of separately billed services. This included personally reviewing all current laboratories and imaging studies, medical reconciliation, outpatient chart review and discussion with specialists. This chart was completed in part utilizing Speech Voice Recognition Software. Grammatical errors, random word insertions, pronoun errors, and incomplete sentences are an occasional consequence of this system due to software limitations, ambient noise, and hardware issues. Any formal questions or concerns about the content, text, or information contained within the body of this dictation should be directly addressed to the provider for clarification. Admission and Anticipated Discharge Date Admission Date: September 26, 2023 Subjective Patient seen and examined in room E302-1. Patient was working well with OT when I entered the room. Nurses report no acute issues overnight. Patient states that her pain is well-controlled when she is sitting still and tolerable when she moves. Review of Systems Review of Systems: At least ten systems reviewed and negative, except as noted in the subjective section. Physical Exam Physical Exam: General: Vitals as above, NAD, sitting up in chair at bedside, pleasant, conversing, cooperative with nursing staff this morning. HEENT: Normocephalic, atraumatic. PERRL, conjunctivae normal, anicteric sclerae. External ear and nose normal, oropharynx normal. Respiratory: Normal respiratory effort, lungs clear to auscultation, no wheeze, rales, rhonchi. No accessory muscle use. Cardiovascular: Regular rate, rhythm, no murmur, normal peripheral pulses, no BLE edema. Vessels: No JVD. Abdomen/GI: Normal bowel sounds, soft, nontender, no hepatosplenomegaly. Extremities/Musculoskeletal: No cyanosis or clubbing, tenderness to palpation of right hip. Neurologic: EOMI, accommodation nl, no focal deficits, CN's II-XI not formally tested but appear grossly intact bilaterally. Skin: No rashes, normal color, warm/dry. Results & Data Results & Data Vital Signs (Past 12 Hours) Vital Signs Temp Pulse Resp BP BP Pulse Ox O2 Del Method 09/29/23 15:15 36.8 C 79 16 126/76 98 Room Air 09/29/23 12:53 36.5 C 77 20 142/80 H 99 Room Air 09/29/23 07:47 36.5 C 77 18 156/79 H 96 Room Air 09/29/23 07:21 36.7 C 69 18 150/77 H 98 Room Air (3) HTN (hypertension) Hypertension type: unspecified Qualified Code(s): I10 - Essential (primary) hypertension (5) HLD (hyperlipidemia) Hyperlipidemia type: unspecified Qualified Code(s): E78.5 - Hyperlipidemia, unspecified
[2023-09-30 07:52] VITALS: TEMP 98.4; O2SAT 96
[2023-09-30 08:34] LABS: BUN Creatinine Ratio 29.5 (10-20); Calcium 8.6 mg/dl (8.6-10.3); Creatinine Clr Calc Pharmacy 51.1 ml/min; Est GFR (African American) 93.2 ml/min; Est GFR (Non-African American) 80.4 ml/min; Magnesium 1.8 mg/dl (1.7-2.4); Phosphorus 2.9 mg/dl (2.5-4.9); Potassium 3.4 mmol/L (3.5-5.1)
--- NOTE | 2023-09-30 10:16 | Hospitalist Progress Note ---
Date of Service September 30, 2023 Assessment & Plan (1) Periprosthetic fracture around internal prosthetic right hip joint, initial encounter: (2) Suicide risk: Plan Sarah Arce is an 88-year-old female with PMHx significant for HTN, HLD, hypothyroidism and dementia who presented to the ED on 09/25 for evaluation of right hip pain s/p fall and was found to have a right periprosthetic hip fracture. 09/29: Referral made to [facility] on 09/28 - waiting to hear back. Otherwise, patient to continue with PT/OT pending rehabilitation placement. 09/28: Patient with no acute behavioral concerns overnight. [facility] not able to offer the patient a bed, daughter updated. Referral was made to [facility] - waiting to hear back from regarding this. Periprosthetic Fracture of Right Hip Joint Patient presented from home after her daughter found her on the floor in her bedroom. In the ED, XR imaging showed an acute comminuted periprosthetic fracture of the right proximal femur. Head and cervical spine CT were both negative. Ortho was consulted and evaluated the patient on 09/25 - patient may WBAT RLE with no active hip abduction. Patient will need a follow-up appointment in 2 weeks as outpatient with Dr. Michel for repeat XR imaging. Will continue with PT/OT, pain control regimen in place. Ready for d/c when bed is available. Suicide Risk At time of admission, daughter mentioned she received reports from 2 family members that the patient expressed suicidal ideations, no details or plan reported. No self harming behaviors observed. Patient and her daughter met with a behavioral health liaison on 09/25. Per psychiatric liaison documentation on 09/25: "Unable to do Suicide Risk Assessment due to patients cognitive status. When speaking to daughter outside of room privately, she reports that approximately a week ago her mother had SI without a plan or intent. This was related to her present situation/frustration with not being able to do ADL's as she used to. She agrees that her mother would not try to attempt this. Patient shook her head no when asked if she would attempt to hurt herself. Daughter reports that patient has never made those statements in the past or since last week and has no history of mental illness/inpatient stays for psych." Hypertension Chronic, stable. Can continue [employer] irbesartan. Hyperlipidemia: Continue [employer] statin therapy. Acquired Hypothyroidism TSH WNL at time of admission, continue levothyroxine. DVT Prophylaxis: SQ Lovenox Code Status: DNR/DNI - No Resuscitation [per previous provider's review of patient's POLST form] PCP: Lisa Adam MD Disposition: Admitted in Med/Surg - awaiting placement at this time. Patient seen in collaboration with Dr. Munoz. Please see addendum. I spent a total of 25 minutes coordinating, documenting, and providing care for this patient excluding time spent in the performance of separately billed services. This included personally reviewing all current laboratories and imaging studies, medical reconciliation, outpatient chart review and discussion with specialists. This chart was completed in part utilizing Speech Voice Recognition Software. Grammatical errors, random word insertions, pronoun errors, and incomplete sentences are an occasional consequence of this system due to software limitations, ambient noise, and hardware issues. Any formal questions or c oncerns about the content, text, or information contained within the body of this dictation should be directly addressed to the provider for clarification. Admission and Anticipated Discharge Date Admission Date: September 26, 2023 Subjective Patient seen and examined in room E302-1. Nurses report no acute issues overnight. Patient with no acute concerns or complaints this morning. Review of Systems Review of Systems: At least ten systems reviewed and negative, except as noted in the subjective section. Physical Exam Physical Exam: General: Vitals as above, NAD, pleasant, conversing appropriately, cooperative with nursing staff this morning, pleasantly confused. HEENT: Normocephalic, atraumatic. PERRL, conjunctivae normal, anicteric sclerae. External ear and nose normal, oropharynx normal. Respiratory: Normal respiratory effort, lungs clear to auscultation, no wheeze, rales, rhonchi. No accessory muscle use. Cardiovascular: Regular rate, rhythm, no murmur, normal peripheral pulses, no BLE edema. Vessels: No JVD. Abdomen/GI: Normal bowel sounds, soft, nontender, no hepatosplenomegaly. Extremities/Musculoskeletal: No cyanosis or clubbing, tenderness to palpation of right hip. Neurologic: EOMI, accommodation nl, no focal deficits, CN's II-XI not formally tested but appear grossly intact bilaterally. Skin: No rashes, normal color, warm/dry. Results & Data Results & Data Vital Signs (Past 12 Hours) Vital Signs Temp Pulse Resp BP Pulse Ox O2 Del Method 09/30/23 07:52 36.9 C 85 16 125/76 96 Room Air Laboratory Results [facility] 09/30/23 07:14 Sodium 139 Potassium 3.4 L Chloride 106 Carbon Dioxide 28 BUN 18 Creatinine 0.61 Glucose 89 Calcium 8.6
--- NOTE | 2023-09-30 10:53 | Discharge Summary ---
<Statement entered by Harris Munoz, DO - 09/30/23 11:36> I have seen and examined the patient and have discussed the case with the provider above. I have reviewed the advanced practitioner's documentation, and I agree with, and take responsibility for that plan of care. 15 minutes spent in evaluation of patient and coordinating discharge. Patient awake and her pleasant self. Pain appears to be controlled Discharge plans as outlined below Date of Service September 30, 2023 Admission HPI Per Admitting Provider 88-year-old female with PMH HTN, HLD, hypothyroidism, dementia, and other problems listed below who presents to the ED for evaluation of fall and right hip pain. History is mostly obtained from the daughter due to underlying dementia, outpatient PCP records were also reviewed. Daughter states that her mother has been living with her for about the past 2 years since she moved here from [place] due to declining mental status. Daughter states she has noticed a worsening in her mental status over the past 2 years. This morning, daughter heard a loud noise come from her mother's bedroom. When she entered, she found her on the ground and she was complaining of severe right hip pain. Patient was unable to get up from the floor. Patient does not remember the fall and cannot provide any details. EMS was called and patient was brought to the ED for further evaluation. Daughter states that it is getting more difficult to take care of her mother at home. She has been having troubles dressing herself and doing activities of daily living. Last week, patient went for a walk and when she returned she entered into the wrong home. Daughter states that she has very limited short-term memory. Daughter also reports that she has heard from other family members that the patient has been reporting suicidal ideations. No details or plan reported. No observed self harming behavior. In the ED, XR shows Acute comminuted periprosthetic fracture of the right proximal femur. Patient is hemodynamically stable, labs unremarkable. Admission Exam Per Admitting Provider Constitutional: WD/WN, vitals as above no acute distress Eyes: PERRL, conjunctivae normal, anicteric sclerae ENMT: external ear and nose normal, oropharynx normal Respiratory: normal respiratory effort, lungs clear to auscultation Cardiovascular: Rate/Rhythm: regular rate and regular rhythm Vessels: normal peripheral pulses Extremities: no edema Gastrointestinal (Abdomen): normal bowel sounds, soft, nontender, no hepatosplenomegaly Musculoskeletal: no tenderness over right hip Skin: no rashes, warm and dry Neurologic: PERRL, EOMI, accommodation nl, no face palsy, no dysarthria Psychiatric: Orientation: alert, oriented to person and cooperative; + not oriented to place and + not oriented to time Insight: + limited insight Principal Diagnosis Periprosthetic Fracture of Right Hip Joint Discharge Exam General: Vitals as above, NAD, pleasant, conversing appropriately, cooperative with nursing staff this morning, pleasantly confused. HEENT: Normocephalic, atraumatic. PERRL, conjunctivae normal, anicteric sclerae. External ear and nose normal, oropharynx normal. Respiratory: Normal respiratory effort, lungs clear to auscultation, no wheeze, rales, rhonchi. No accessory muscle use. Cardiovascular: Regular rate, rhythm, no murmur, normal peripheral pulses, no BLE edema. Vessels: No JVD. Abdomen/GI: Normal bowel sounds, soft, nontender, no hepatosplenomegaly. Extremities/Musculoskeletal: No cyanosis or clubbing, tenderness to palpation of right hip. Neurologic: EOMI, accommodation nl, no focal deficits, CN's II-XI not formally tested but appear grossly intact bilaterally. Skin: No rashes, normal color, warm/dry. Discharge Data Allergies Allergy/AdvReac Type Severity Reaction Status Date / Time No Known Allergies AdvReac Unknown Unverified 09/26/23 08:01 Consultations 09/26/23 09:15 ED Decision to Admit Stat 09/26/23 10:28 Consult Orthopedic Surgery Routine 09/26/23 10:30 Consult Behavioral Health Liaison Routine Ordered Studies 09/26/23 07:15 CT cervical spine wo con Stat CT head/brain wo con Stat Hospital Course (1) Periprosthetic fracture around internal prosthetic right hip joint, initial encounter: Montserrat Arce is an 88-year-old female with PMHx significant for HTN, HLD, hypothyroidism and dementia who presented to the ED on 09/25 for evaluation of r ight hip pain s/p fall and was found to have a right periprosthetic hip fracture. Periprosthetic Fracture of Right Hip Joint Patient presented from home after her daughter found her on the floor in her bedroom. In the ED, XR imaging showed an acute comminuted periprosthetic fracture of the right proximal femur. Head and cervical spine CT were both negative. Ortho was consulted and evaluated the patient on 09/25 - patient may WBAT RLE with no active hip abduction, no acute surgical intervention warranted. Patient will need a follow-up appointment in 2 weeks as outpatient with Dr. Michel for repeat XR imaging. Will be sent home with a prescription of oxycodone for mod-sev pain. Suicide Risk At time of admission, daughter mentioned she received reports from 2 family members that the patient expressed suicidal ideations, no details or plan reported. No self harming behaviors observed. Patient and her daughter met with a behavioral health liaison on 09/25. Per psychiatric liaison documentation on 09/25: "Unable to do Suicide Risk Assessment due to patients cognitive status. When speaking to daughter outside of room privately, she reports that approximately a week ago her mother had SI without a plan or intent. This was related to her present situation/frustration with not being able to do ADL's as she used to. She agrees that her mother would not try to attempt this. Patient shook her head no when asked if she would attempt to hurt herself. Daughter reports that patient has never made those statements in the past or since last week and has no history of mental illness/inpatient stays for psych." Hypertension: Can continue irbesartan at time of discharge. Hyperlipidemia: Can continue pravastatin at time of discharge. Acquired Hypothyroidism TSH WNL this admission. Can continue levothyroxine at time of discharge. PCP: Lisa Adam MD Disposition: Patient is being discharged to [facility] for rehabilitation services. Patient seen in collaboration with Dr. Munoz. Please see addendum. I spent a total of 45 minutes coordinating, documenting, and providing care for this patient excluding time spent in the performance of separately billed services. This included personally reviewing all current laboratories and imaging studies, medical reconciliation, outpatient chart review and discussion with specialists. This chart was completed in part utilizing Speech Voice Recognition Software. Grammatical errors, random word insertions, pronoun errors, and incomplete sentences are an occasional consequence of this system due to software limitations, ambient noise, and hardware issues. Any formal questions or concerns about the content, text, or information contained within the body of this dictation should be directly addressed to the provider for clarification. Home Health Attestation I certify that this patient is under my care and that I, or a physicians learning support assistant working with me, had a face to-face encounter that meets the home health [id number] encounter requirements with this patient. The encounter with the patient was in whole, or in part, for the following medical condition, which is the primary reason for home health care (list medical condition): I certify that, based on my findings, the following services are medically necessary home health services: My clinical findings support the need for the above services because: Further, I certify that my clinical findings support that this patient is homebound (i.e. absences from home require considerable and taxing effort and are for medical reasons or christian services or infrequently or of short duration when for other reasons) because: Certification for Home Health Services: Based on the above findings, I certify that this patient is confined to the home and needs intermittent mcc care, physical therapy and/or speech therapy or continues to need occupational therapy. The patient is under my care, and I have initiated the establishment of the plan of care. This patient will be followed by a physician who will periodically review the plan of care. Total Time Total Time Spent Total Time Spent (In Minutes): 45 Discharge Plan Discharge Items Patient Disposition: [facility] Reason For Visit: right peroprosthetic fx Discharge Diagnosis: Periprosthetic Fracture of Right Hip Joint Activity: As commented below Activity Comment: May WBAT RLE with no active hip abduction. Non-emergency contact: Primary Care Provider Call non-emergency contact if: you have any medication questions and your pain is not controlled Follow-up/Referrals: Lisa Adam MD [Primary Care Provider] - Phillip Michel MD [Physician] - Diet: Regular Addtl Attending Provider Instructions: Ms. Arce: You were admitted to the hospital for management of a right periprosthetic hip fracture after sustaining a fall. You were seen and evaluated by orthopedic surgery while you were admitted in the hospital. You did not have to undergo any surgical interventions for the fracture. You will need to follow-up with [facility] in approximately 2 weeks. You will be contacted by office staff at [facility] to schedule a follow-up appointment. Please attend this appointment as scheduled to closely monitor how your right hip fracture is healing. You can continue to take Tylenol as needed for pain control. You are being sent home with a prescription of oxycodone to use for episodes of moderate to severe pain - please take this medication as prescribed. Seek medical attention if you have: * temperature above 101 * chest pain or trouble breathing * abdominal pain, nausea, vomiting * diarrhea, dark stools or bloody stools * any unanswered questions or concerns Call 911 if symptoms are severe. Please take good care of yourself. It has been a pleasure taking care of you. If you have any questions regarding your recent hospitalization please contact [facility] and request Noa Santiagoist @ [phone]. Pending Studies at Discharge: No Stand-Alone Forms: My [facility] Skilled Items Patient informed of condition?: Yes DNR: Yes Discharge Level of Care: Skilled Communicable Disease: No Discharge Prognosis: Stable Lines: None Urinary Catheter: No Medications and DC Order Prescriptions: Continued pravastatin 40 mg tablet 40 mg PO DAILY levothyroxine 50 mcg tablet 50 mcg PO DAILY irbesartan 75 mg tablet 75 mg PO DAILY Krames/Other Patient Handouts: Understanding Hip Fractures, How Bones Heal, Preventing Falls Preparation Admission Data Admit Date/Time: 09/26/23 09:23 Attending Provider: Harris Munoz Admit Provider: Black Sanchez Primary Care Provider: Lisa Adam Other Providers: Hardik Walsh; Black Sanchez; [facility]; [facility]
[2023-09-30 12:05] VITALS: BP 184/70; PULSE 70
== END 2023-09-30 15:46 | DRG 536 ==
LOC: ED 06:55 → MERGE 06:55 → EDINP 09:23 → SUATTDRO 09:23 → 3E 12:34